=== PATIENT | female | born 1945 | race Caucasian/White ===

== ENCOUNTER → 2017-01-06 | Outpatient (CLI) | payer BC ==
[~2017-01-06] MED LIST: ASPI81TA28 PO; CRAN1CAP15 PO; KRIL1CAP18 PO; LEVO125T4 PO; LOSA100T2 PO; METO25TA56 PO; MULT-506 PO; OXYC-57 PO; PRLSR20 PO; SERT50TA PO
--- NOTE | 2017-01-06 10:51 | DIAGNOSTIC IMAGING REPORT ---
RIGHT KNEE 1 OR 2 VIEWS ROUTINE CLINICAL HISTORY: Right knee pain COMPARISON: None. DISCUSSION: The bones are mildly osteopenic. There are mild osteoarthritic changes. There are no acute fractures. There are no destructive lesions. There is a probable small suprapatellar joint effusion. IMPRESSION: 1. Mild degenerative change 2. No acute fractures 3. Osteopenia 4. Suspected small joint effusion Electronically signed by: Pascual Beal M.D. 01/06/2017 10:50 AM Dictated Date/Time: 01/06/2017 10:49 AM
--- NOTE | 2017-01-06 11:01 | DIAGNOSTIC IMAGING REPORT ---
RIGHT HIP UNILATERAL 2 VIEWS CLINICAL HISTORY: Right hip pain. COMPARISON: Right hip radiographs May 22, 2013. FINDINGS: Alignment of the right hip is anatomic. There is no fracture or suspicious lesion. There is no evidence for avascular necrosis of the right femoral head. Hip joint space is preserved. There is minimal osteophytosis and subchondral sclerosis within the acetabulum. IMPRESSION: 1. No acute fracture or dislocation of the right hip. 2. Mild right hip osteoarthritis. Electronically signed by: Enrike Cody M.D. 01/06/2017 11:00 AM Dictated Date/Time: 01/06/2017 10:59 AM
[2017-01-06 11:11] LABS: BASO % 0.4 %; BASO ABS # 0.03 K/uL (0-0.2); COMPLETE YES; EOS % 2.1 %; HEMATOCRIT 42.8 % (37-47); IG% 0.3 %; LYMPH % 31.7 %; LYMPH ABS # 2.41 K/uL (1.2-3.4); MEAN CELL VOLUME 89.4 fL (80-100); MEAN CORPUSCULAR HEMOGLOBIN 30.9 pg (25-34); MEAN CORPUSCULAR HGB CONC 34.6 g/dl (32-36); MEAN PLATELET VOLUME 10.2 fL (7.4-10.4); NEUT % 58.5 %; PLATELET COUNT 251 K/uL (130-400); RED BLOOD COUNT 4.79 M/uL (4.2-5.4); WHITE BLOOD COUNT 7.61 K/uL (4.8-10.8)
[2017-01-06 11:45] LABS: ALT/SGPT 19 U/L (12-78); AST/SGOT 11 U/L (15-37); BLOOD UREA NITROGEN 13 mg/dl (7-18); BUN/CREATININE RATIO 18.1 (10-20); CALCIUM 8.8 mg/dl (8.5-10.1); CARBON DIOXIDE 33 mmol/L (21-32); CHLORIDE 101 mmol/L (98-107); CHOLESTEROL 199 mg/dl (0-200); CREATININE 0.69 mg/dl (0.60-1.20); GLUCOSE 103 mg/dl (70-99); MAGNESIUM 2.2 mg/dl (1.8-2.4); POTASSIUM 3.4 mmol/L (3.5-5.1); SODIUM 140 mmol/L (136-145)
[2017-01-06 11:53] LABS: ALKALINE PHOSPHATASE 62 U/L (45-117); HDL CHOLESTEROL 66 mg/dl; LDL CHOLESTEROL CALCULATED 114 mg/dl; TRIGLYCERIDES 94 mg/dl (0-150); VERY LOW DENSITY LIPOPROT CALC 19 mg/dl
== END | disposition home or self-care (01) ==
LOC: C.RAD1850 10:19
PROVIDERS: ATTEND Nurse Practitioner Family
DX: M25.561 Pain in right knee (principal); M25.551 Pain in right hip; I10 Essential (primary) hypertension; E03.9 Hypothyroidism, unspecified; K21.9 Gastro-esophageal reflux disease without esophagitis; Z13.1 Encounter for screening for diabetes mellitus; Z13.220 Encounter for screening for lipoid disorders

== ENCOUNTER → 2017-01-11 | Outpatient (CLI) | payer BC ==
--- NOTE | 2017-01-11 13:30 | DIAGNOSTIC IMAGING REPORT ---
CT temporal bones TEMPORAL ORB/SELLA/TEMP W/O CLINICAL HISTORY: H71.01,H70.11 cholesteatoma TECHNIQUE: Transaxial acquisition with multi axial reformatted images COMPARISON STUDY: None FINDINGS: The left mastoid air cells are well aerated. The left middle ear canal appears to be generally patent with only a trace amount of mucosal thickening. The middle ear ossicles are intact. The left scutum is intact. Left tympanic membrane is slightly retracted. There is a focal mass cerumen medially lateral to the left tympanic membrane. The right mastoid air cells show near complete opacification. Abnormal soft tissue encircles and somewhat disrupts the right middle ear ossicles. There is partial erosive change of the tip of the scutum. Tympanic membrane is retracted. Abnormal soft tissue occupies a component of the attic estimated at 25-30% volume. The right external auditory canal is widely patent. IMPRESSION: 1. Near complete opacification right mastoid air cells. 2. Abnormal soft tissue encircling and disrupting the middle air ossicles of the right middle ear. 3. This soft tissue demonstrates mild focal erosive change of the tip of the scutum and moderate tympanic membrane retraction. 4. Soft tissue within the right attic is 25-30% of volume. There is no erosive change of the superior attic margin 5. Mild retraction left tympanic membrane with no significant scutum erosion or abnormal soft tissue within the middle ear. Electronically signed by: Sachin Flores M.D. 01/11/2017 1:29 PM Dictated Date/Time: 01/11/2017 1:20 PM
== END | disposition home or self-care (01) ==
LOC: C.CTS 12:39
PROVIDERS: ATTEND Otolaryngology
DX: H71.01 Cholesteatoma of attic, right ear (principal); H70.11 Chronic mastoiditis, right ear

== ENCOUNTER 2017-02-19 05:16 | Day surgery (SDC) | payer BC ==
[2017-02-09 10:41] VITALS: BMI 31.0
--- NOTE | 2017-02-09 11:11 | PAT Medication Instructions ---
Service Date Feb 09, 2017. Current Home Medication List Aspirin (Aspirin Ec), 81 MG PO QAM Cranberry-Vitamin C-Vitamin E (Cranberry), 1 CAP PO QAM Krill Oil (Megared [place]-3 Krill Oil 500 mg), 1 CAP PO DAILY Levothyroxine Sodium (Levothyroxine Sodium), 1 TAB PO QAM Losartan Potassium & Hydrochlo (Hyzaar), 1 TAB PO QAM Metoprolol Tartrate (Lopressor) (Lopressor), 25 MG PO QAM Multivitamin (Multivitamin), 1 TAB PO QAM Omeprazole (Prilosec), 40 MG PO HS Sertraline (Zoloft), 50 MG PO HS Medication Instructions For Your Scheduled Surgery - Check with surgeon for instructions: Aspirin (Aspirin Ec), 81 MG PO QAM - Hold the following medications starting 02/10/17: Cranberry-Vitamin C-Vitamin E (Cranberry), 1 CAP PO QAM Krill Oil (Megared Mercedita-3 Krill Oil 500 mg), 1 CAP PO DAILY - Hold the following medications the morning of surgery: Multivitamin (Multivitamin), 1 TAB PO QAM Losartan Potassium & Hydrochlo (Hyzaar), 1 TAB PO QAM - Take the following medications the morning of surgery with a sip of water: Metoprolol Tartrate (Lopressor) (Lopressor), 25 MG PO QAM Levothyroxine Sodium (Levothyroxine Sodium), 1 TAB PO QAM - Take the following medications as scheduled the night before surgery: Omeprazole (Prilosec), 40 MG PO HS Sertraline (Zoloft), 50 MG PO HS If you have any questions please call us at [phone] (Jennifer Rod PA-C) or [phone] or [phone]
--- NOTE | 2017-02-18 15:09 | History and Physical ---
History & Physical Date Feb 18, 2017. Chief Complaint right ear infection, drainage History of Present Illness The patient is a 71 year old female with complaints of cholesteatoma of right ear and mastoid Additional History Hepatic Disease: No Endocrine Disorder: No Kidney Disease: No Hypertension: Yes Heart Disease: No Bleeding Tendencies: No Infectious Diseases: No Allergies Coded Allergies: NO KNOWN DRUG ALLERGIES (Verified Allergy, Unknown, NKDA, 02/09/17) Home Medications Scheduled Aspirin (Aspirin Ec), 81 MG PO QAM Cranberry-Vitamin C-Vitamin E (Cranberry), 1 CAP PO QAM Krill Oil (Megared [place]-3 Krill Oil 500 mg), 1 CAP PO DAILY Levothyroxine Sodium (Levothyroxine Sodium), 1 TAB PO QAM Losartan Potassium & Hydrochlo (Hyzaar), 1 TAB PO QAM Metoprolol Tartrate (Lopressor) (Lopressor), 25 MG PO QAM Multivitamin (Multivitamin), 1 TAB PO QAM Omeprazole (Prilosec), 40 MG PO HS Sertraline (Zoloft), 50 MG PO HS Physical Examination Skin: warm/dry, no rash Eyes: normal inspection, EOMI, sclerae normal ENT: normal ENT inspection, pharynx normal, + pertinent finding (cholesteatoma and post. sup. perforation right ear) Head: normocephalic, atraumatic Neck: supple, no adenopathy, trachea midline Respiratory/Chest: lungs clear, normal breath sounds, no respiratory distress Cardiovascular: regular rate, rhythm, no edema, no murmur Abdomen / GI: normal bowel sounds, non tender Back: normal inspection Extremities: normal inspection, normal range of motion Neurologic/Psych: no motor/sensory deficits, alert, normal reflexes, oriented x 3 Diagnosis cholesteatoma Plan of Treatment tympanomastoidectomy, right
[~2017-02-19] VITALS: Ht 172.7 cm; Wt 94.4 kg
[~2017-02-19 05:16] MED LIST changes: -LEVO125T4 PO; +LEVO125T5 PO; -OXYC-57 PO
[2017-02-19 05:59] VITALS: BP 155/88; PULSE 66; TEMP 37; O2SAT 95; Ht 172.7 cm; Wt 94.4 kg
[2017-02-19] MEDS ORDERED: CEFAZOLIN 2000 MG/60 ML D5W IV SCH (06:00)
[2017-02-19] MEDS ORDERED: LACTATED RINGER'S 1000ML 1,000 ML IV SCH (06:00)
--- NOTE | 2017-02-19 07:05 | History & Physical Bridge Note ---
H&P Re-Evaluation Bridge Note: I have examined the patient, reviewed the History & Physical and in the interval since the performance of the History & Physical I have noted the following changes of clinical significance: No changes noted
[2017-02-19] MEDS ORDERED: MIDAZOLAM HCL 1 MG/ML 2ML VIAL ONE (07:08)
[2017-02-19] MEDS ORDERED: LIDOCAINE HCL 2% 2 ML VIAL (20MG/ML) ONE (07:08)
[2017-02-19] MEDS ORDERED: FENTANYL CITRATE INJ 50 MCG/1 ML 2 ML VIAL ONE (07:08)
[2017-02-19] MEDS ORDERED: PROPOFOL IV EMULSION 10 MG/ML 20 ML VIAL IV ONE (07:08)
[2017-02-19] MEDS ORDERED: GELATIN SPONGE 12-7MM ONE (07:11)
[2017-02-19] MEDS ORDERED: NEOMYC/POLYMYX/BACITR/HC OP OI 3.5 GM TUBE ONE (07:12)
[2017-02-19] MEDS ORDERED: NEOMYCIN/POLYMYX/HYDROCORT OT SUSP 10 ML BTL ONE (07:13)
[2017-02-19] MEDS ORDERED: ONDANSETRON INJ 2 MG/ML 2 ML VIAL ONE (07:45)
[2017-02-19] MEDS ORDERED: DEXAMETHASONE SOD INJ 4 MG/ML VIAL ONE (07:45)
[2017-02-19] MEDS ORDERED: SUCCINYLCHOLINE 100MG/5ML SYR IV ONE (07:45)
[2017-02-19] MEDS ORDERED: LIDOCAINE/EPINEPHRINE 2% 1:200,000 20 ML SDV INJ ONE (09:14)
[2017-02-19] MEDS ORDERED: SODIUM CHLORIDE 0.9% 1000ML 1,000 ML IV SCH (09:35)
[2017-02-19] MEDS ORDERED: OXYC-57 PO (09:36)
--- NOTE | 2017-02-19 09:37 | Discharge Instructions ---
Discharge Instructions Date of Service Feb 19, 2017. Admission Reason for Admission: Cholesteatoma Right Ear Discharge Discharge Diagnosis / Problem: same Discharge Goals Goal(s): Therapeutic intervention Activity Recommendations Activity Limitations: resume your previous activity . Instructions / Follow-Up Instructions / Follow-Up ACTIVITY RECOMMENDATIONS: No limitations OVER THE COUNTER MEDICATIONS: Continue any other previous medications unless otherwise indicated by your surgeon. * You may use Tylenol for mild pain as per bottle instructions. SPECIAL CARE INSTRUCTIONS: * Keep operative ear dry. * Change cotton balls 4 times per day. Leave packing in ear. * Sneeze with your mouth open. * Do not blow your nose. Sniff back instead. * Please call with any increasing pain, increasing drainage, active bleeding, redness and/or swelling, or any concerns. Dr. Magaña's office number is . FOLLOW UP VISIT: If not already scheduled, please call to schedule follow-up appointment with Dr. Magaña. Current Hospital Diet Patient's current hospital diet: Discharge Diet Recommended Diet: Regular Diet Procedures Procedures Performed: Right Tympanomastoidectomy Pending Studies Studies pending at discharge: no Laboratory Results Lipid Panel Test 01/06/17 10:24 Range/Units Triglycerides Level 94 0-150 mg/dl Cholesterol Level 199 0-200 mg/dl HDL Cholesterol 66 mg/dl Cholesterol/HDL Ratio 3.0 LDL Cholesterol, Calculated 114 mg/dl Medical Emergencies . Who to Call and When: Medical Emergencies: If at any time you feel your situation is an emergency, please call 911 immediately. . Non-Emergent Contact Non-Emergency issues call your: Primary Care Provider . "Provider Documentation" section prepared by Arlette Magaña. VTE Core Measure Inpt VTE Proph given/why not?: SCD's [place] Drug Monitoring Program Search Results: no issues identified
[2017-02-19] MEDS ORDERED: EpHEDrine SULFATE 50MG/5ML SYR ONE (09:42)
[2017-02-19] MEDS ORDERED: OXYCODONE/ACETAMINOPHEN 5-325 TAB PO PRN ×2 (09:45)
[2017-02-19] MEDS ORDERED: HYDROmorphone INJ 2 MG/ML SYR/VIAL IV PRN (10:00)
[2017-02-19] MEDS ORDERED: ONDANSETRON INJ 2 MG/ML 2 ML VIAL IV PRN (10:00)
[2017-02-19] MEDS ORDERED: PHENYLEPHRINE 100MCG/ML 5ML SYR IV PRN (10:00)
[2017-02-19] MEDS ORDERED: ATROPINE SULFATE 0.1 MG/ML 5ML SYR IV PRN (10:00)
[2017-02-19] MEDS ORDERED: EpHEDrine SULFATE INJ 50 MG/ML AMP IV PRN (10:00)
--- NOTE | 2017-02-19 10:15 | OPERATIVE REPORT ---
DATE OF OPERATION: 02/19/2017 PREOPERATIVE DIAGNOSIS: Cholesteatoma of the right ear. POSTOPERATIVE DIAGNOSIS: Same. PROCEDURE: Tympanomastoidectomy, right ear. SURGEON: Dr. Magaña. ANESTHESIA: General LMA. COMPLICATIONS: None. BLOOD LOSS: 30 mL HISTORY: A 71-year-old lady with persistent drainage from perforation of the right ear, noted to have cholesteatoma. CT scan documented opacified right mastoid. DESCRIPTION OF PROCEDURE: The patient brought to the operating room, placed in supine position. General anesthesia was induced, prepped, draped in usual sterile manner. The right ear was prepped with Betadine paint including the ear canal. The patient was draped in usual sterile manner. Under microscopy, the canal and postauricular area were injected with 2% Xylocaine with 1:1000 strength epinephrine. The canal incisions were made at 6 and 12 o'clock and then connected across the posterior canal wall using the [place] blade. The tympanomeatal flap was elevated using the round knife, entering the hypotympanum inferiorly, continuing the elevation superiorly, finding the chorda tympani nerve, preserving the nerve through the entire procedure, finding the malleus to be eroded with a very short handle, finding the incus to be also partially eroded of the lenticular process. At this point, there was no visible superstructure of the stapes. This was probably eroded from the cholesteatoma tumor which was dissected free from the epitympanic area using the round knife, the Estrella, the Monserrat, and the right angle elevators. Because of the extension superiorly, the postauricular incision was made, carried down through the skin and subcutaneous layer using the 15 blade. The periosteal incision was made in the shape of reverse 7 using the 15 blade and elevated using the [place] and [place] elevators, opening up the mastoid. Temporalis fascia was harvested and set aside for use later in the fascia press. Tympanomastoidectomy was performed using the 4.8 and then the 3.2 and then the 2.3 mm burrs on the Xomed drill. The sinodural angle was delineated. The mastoid was thick. The [place] septum was encountered and the mastoid was opened. Thick mucus was evacuated from the mastoid cavity. Elevation was continued anteriorly into the epitympanum, exposing the body of the incus and the head of the malleus, which appeared to be intact. Exploration was performed on both sides of the ear canal underneath the facial recess, finding no further cholesteatoma extension other than into the epitympanum. This cholesteatoma was dissected free with a right angle picks, the Monserrat, and the Estrella needle, and sent for specimen. Again, the incus handle and stapes appeared to have eroded and also the malleus appeared to be shortened. With the mastoid irrigated clean, the middle ear space was inspected. This was filled with pieces of dry Gelfoam as a platform. The temporalis fascia was placed in the underlay manner, draped onto the posterior and superior canal wall, and then the tympanomeatal flap was reflected back in its original position. The mastoid was closed with interrupted 4-0 Vicryl sutures on the periosteum and then interrupted 4-0 Vicryl suture subcutaneously and subcuticularly. Dermabond was used to close the skin. The canal was filled with pieces of Gelfoam dipped in Cortisporin and also with Cortisporin ointment. The Larue dressing was placed over the right mastoid. The patient tolerated the procedure well and was taken to recovery area in satisfactory condition. I attest to the content of the Intraoperative Record and any orders documented therein. Any exceptio ns are noted below.
[2017-02-19 10:30] VITALS: BP_SYST 139; BP_SYST 145; BP_DIAS 74; BP_DIAS 75; PULSE 78; TEMP 36.5; O2SAT 91; O2SAT 94
[2017-02-19 11:00] VITALS: BP_SYST 139; BP_SYST 145; BP_DIAS 74; BP_DIAS 75; TEMP 36.5; O2SAT 94
[2017-02-19] MEDS ORDERED: ACETAMINOPHEN 325 MG TAB ONE (11:11)
[2017-02-19 11:30] VITALS: BP 131/65; PULSE 78; TEMP 36.5; O2SAT 96
[2017-02-19 12:00] VITALS: BP 132/63; PULSE 78; TEMP 36.9; O2SAT 94
--- NOTE | 2017-02-19 12:19 | Anesthesiology Progress Note ---
Anesthesia Post Op Note Date & Time Feb 19, 2017 at 12:19 Vital Signs Pain Intensity: 0 Vital Signs Past 12 Hours Date Time Temp Pulse Resp B/P Pulse Ox O2 Delivery O2 Flow Rate FiO2 02/19/17 10:25 36.5 75 16 138/67 97 Room Air 02/19/17 10:23 79 14 96 02/19/17 10:23 77 14 02/19/17 10:20 147/73 02/19/17 10:18 77 19 02/19/17 10:18 75 19 93 02/19/17 10:15 141/75 02/19/17 10:13 79 14 96 02/19/17 10:13 80 14 02/19/17 10:10 148/78 02/19/17 10:08 87 17 92 02/19/17 10:08 87 17 02/19/17 10:07 87 19 02/19/17 10:07 86 19 94 02/19/17 10:05 145/74 02/19/17 10:02 86 17 02/19/17 10:02 87 17 92 02/19/17 10:00 151/86 02/19/17 09:57 83 17 95 02/19/17 09:57 83 17 02/19/17 09:55 133/87 02/19/17 09:52 86 17 100 02/19/17 09:52 85 17 02/19/17 09:50 141/96 02/19/17 09:47 36.9 89 18 154/82 100 Mask 10 02/19/17 09:47 87 13 02/19/17 09:47 86 13 154/82 100 02/19/17 05:59 37.0 66 22 155/88 95 Room Air Notes Mental Status: alert / awake / arousable, participated in evaluation Pt Amnestic to Procedure: Yes Nausea / Vomiting: adequately controlled Pain: adequately controlled Airway Patency, RR, SpO2: stable & adequate BP & HR: stable & adequate Hydration State: stable & adequate Anesthetic Complications: no major complications apparent
[2017-02-19 13:19] VITALS: BP 145/74; PULSE 78; TEMP 36.9; O2SAT 94
== END 2017-02-19 12:27 | disposition home or self-care (01) ==
LOC: C.ACU 05:16
PROVIDERS: ATTEND Otolaryngology
DX: H60.41 Cholesteatoma of right external ear (principal); H61.891 Other specified disorders of right external ear

== ENCOUNTER → 2017-04-20 | Outpatient (CLI) | payer BC ==
[~2017-04-20] MED LIST changes: +OXYC-57 PO
--- NOTE | 2017-04-20 13:23 | DIAGNOSTIC IMAGING REPORT ---
RIGHT KNEE 1 OR 2 VIEWS ROUTINE CLINICAL HISTORY: Bilateral knee pain. COMPARISON: Right knee radiographs January 06, 2017. FINDINGS: Alignment of the right knee is anatomic. No fracture or suspicious lesions are noted. There is a small right knee joint effusion. There is mild osteophytosis with thin the 3 compartments of the right knee with minimal medial compartment joint space narrowing. Suspected varicosities are noted. IMPRESSION: 1. No acute fracture. 2. Small right knee joint effusion. 3. Mild osteoarthritis of the right knee. Electronically signed by: Enrike Cody M.D. 04/20/2017 1:22 PM Dictated Date/Time: 04/20/2017 1:21 PM
--- NOTE | 2017-04-20 13:24 | DIAGNOSTIC IMAGING REPORT ---
LEFT KNEE 1 OR 2 VIEWS ROUTINE CLINICAL HISTORY: Bilateral knee pain. COMPARISON: None FINDINGS: Alignment of the left knee is anatomic. There is no fracture or joint effusion. No osseous lesion is present. There are suspected varicosities. Joint spaces are preserved. There is minimal osteophytosis within the medial compartment. IMPRESSION: 1. No acute fracture or joint effusion of the left knee. 2. Minimal osteoarthritis of the medial compartment of the left knee. Electronically signed by: Enrike Cody M.D. 04/20/2017 1:22 PM Dictated Date/Time: 04/20/2017 1:22 PM
== END | disposition home or self-care (01) ==
LOC: C.RAD1850 12:51
PROVIDERS: ATTEND Nurse Practitioner Family
DX: M17.0 Bilateral primary osteoarthritis of knee (principal); M25.561 Pain in right knee; M25.562 Pain in left knee

== ENCOUNTER → 2017-12-02 | Outpatient (CLI) | payer BC ==
[~2017-12-02] MED LIST changes: -OXYC-57 PO
[2017-12-02 18:39] LABS: BLOOD UREA NITROGEN 11 mg/dl (7-18); CALCIUM 8.8 mg/dl (8.5-10.1); CARBON DIOXIDE 28 mmol/L (21-32); CREATININE 0.89 mg/dl (0.60-1.20); GLUCOSE 109 mg/dl (70-99); POTASSIUM 3.9 mmol/L (3.5-5.1); SODIUM 135 mmol/L (136-145)
[2017-12-02 18:51] LABS: CHOLESTEROL 183 mg/dl (0-200); LDL CHOLESTEROL CALCULATED 108 mg/dl
== END | disposition home or self-care (01) ==
LOC: C.LABPBG 12:18
PROVIDERS: ATTEND Family Medicine
DX: R39.9 Unspecified symptoms and signs involving the genitourinary system (principal); I10 Essential (primary) hypertension; E03.9 Hypothyroidism, unspecified; Z13.220 Encounter for screening for lipoid disorders

== ENCOUNTER 2018-02-15 06:47 | Inpatient (IN) | payer BC, OTHER ==
[2018-02-15] VITALS (7 sets, daily range): BP systolic 110–145; BP diastolic 73–80; PULSE 88–107; TEMP 36.3–37.2; O2SAT 90–95; Ht 172.7 cm; Wt 92.3 kg
[~2018-02-15] VITALS: Ht 172.7 cm; Wt 92.3 kg
[2018-02-15] MEDS ORDERED: DILTIAZEM HCL 5 MG/ML 5 ML VIAL IV STA ×2 (07:14→08:53)
[2018-02-15 07:22] LABS: BASO % 0.6 %; BASO ABS # 0.04 K/uL (0-0.2); EOS % 1.8 %; EOS ABS # 0.13 K/uL (0-0.5); HEMATOCRIT 40.5 % (37-47); HEMOGLOBIN 13.3 g/dL (12.0-16.0); IG# 0.02 K/uL (0.00-0.02); LYMPH % 19.8 %; LYMPH ABS # 1.43 K/uL (1.2-3.4); MEAN CELL VOLUME 93.1 fL (80-100); MEAN CORPUSCULAR HEMOGLOBIN 30.6 pg (25-34); MEAN CORPUSCULAR HGB CONC 32.8 g/dl (32-36); MEAN PLATELET VOLUME 10.2 fL (7.4-10.4); MONO % 5.5 %; PLATELET COUNT 216 K/uL (130-400); RED CELL DISTRIBUTION WIDTH CV 14.4 % (11.5-14.5); RED CELL DISTRIBUTION WIDTH SD 49.2 fL (36.4-46.3); WHITE BLOOD COUNT 7.22 K/uL (4.8-10.8)
[2018-02-15 07:38] LABS: ALBUMIN 3.5 gm/dl (3.4-5.0); ALT/SGPT 73 U/L (12-78); AST/SGOT 43 U/L (15-37); BLOOD UREA NITROGEN 10 mg/dl (7-18); CALCIUM 8.5 mg/dl (8.5-10.1); CARBON DIOXIDE 27 mmol/L (21-32); CREATININE 1.01 mg/dl (0.60-1.20); GLUCOSE 142 mg/dl (70-99); LIPASE 119 U/L (73-393); POTASSIUM 3.4 mmol/L (3.5-5.1); SODIUM 142 mmol/L (136-145)
[2018-02-15] MEDS ORDERED: POTASSIUM CHLORIDE 20 MEQ/15 ML UDC PO STA (07:40)
[2018-02-15 07:41] LABS: INFLUENZA B ANTIGEN Neg for Influ B (NEG)
[2018-02-15 07:43] LABS: ALKALINE PHOSPHATASE 66 U/L (45-117); CKMB 2.6 ng/ml (0.5-3.6); TOTAL PROTEIN 7.1 gm/dl (6.4-8.2)
[2018-02-15 07:46] LABS: PTT PATIENT 24.7 SECONDS (21.0-31.0)
--- NOTE | 2018-02-15 07:47 | EMERGENCY ROOM VISIT NOTE ---
History Report prepared by Chris: Amarilys Coombs Under the Supervision of: Dr. Steven Chang M.D. First contact with patient: 07:02 Chief Complaint: RESPIRATORY PROBLEMS Stated Complaint: HAVING TROUBLE BREATHING Nursing Triage Summary: pt to the ED with c/o trouble breathing and can't breath when laying down for couple days but got worse last night c/o epigastric pain intermittantly coughing up mucous History of Present Illness The patient is a 72 year old female who presents to the Emergency Room with complaints of constant respiratory problems for the past 2-3 days. She has been feeling short of breath and feeling like she can't breathe. This is worse when she lays flat and is slightly alleviated by sitting or standing. She states that her test feels very tight. Her symptoms became worse last night and she was unable to sleep so she came to the ED for further evaluation. The patient denies any personal history of a-fib or an irregular heart rhythm. 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 She notes that she forgot to take her blood pressure medication yesterday and did not take it this morning because she was not feeling well. Source of History: patient Onset: 2-3 days ago Position: chest Quality: other (shortness of breath) Timing: worsening Modifying Factors (Worsening): other (laying down) Modifying Factors (Relieving): other (sitting/standing) Note: Pt reports chest tightness. Review of Systems See HPI for pertinent positives & negatives. A total of 10 systems reviewed and were otherwise negative. Past Medical & Surgical Medical Problems: (1) Gastro-Esophageal Reflux Disease Without Esophagitis (2) Hypothyroidism, Unspecified (3) Hypothyroidism, Unspecified (4) Hypothyroidism, Unspecified (5) Hypothyroidism, Unspecified (6) Sciatica Family History Diabetes mellitus Heart disease Hypertension Social History Smoking Status: Former Smoker Smokeless Tobacco Use: No Alcohol Use: none Drug Use: none Housing Status: lives with family Occupation Status: employed Current/Historical Medications Scheduled Aspirin (Aspirin Ec), 81 MG PO QAM Hctz/Losartan (Hyzaar 25MG/100MG), 1 TAB PO DAILY Levothyroxine Sodium (Levothyroxine Sodium), 125 MCG PO QAM Metoprolol Tartrate (Lopressor) (Lopressor), 25 MG PO QAM Multivitamin (Multivitamin), 1 TAB PO QAM Sertraline (Zoloft), 50 MG PO HS Allergies Coded Allergies: NO KNOWN DRUG ALLERGIES (Verified Allergy, Unknown, NKDA, 02/15/18) Physical Exam Vital Signs Date Time Temp Pulse Resp B/P (MAP) Pulse Ox O2 Delivery O2 Flow Rate FiO2 02/15/18 09:11 88 Nasal Cannula 2.0 02/15/18 09:10 90 Nasal Cannula 2.0 02/15/18 09:03 93 16 130/89 90 Room Air 02/15/18 08:38 94 16 128/92 91 Room Air 02/15/18 07:56 93 Room Air 02/15/18 07:56 100 16 130/89 93 Room Air 02/15/18 07:15 117 20 151/101 96 Room Air 02/15/18 07:06 152 02/15/18 07:05 99 Room Air 02/15/18 06:50 36.7 89 18 159/86 97 Room Air Physical Exam GENERAL: Awake, alert, well-appearing, in no acute distress HENT: Normocephalic, atraumatic. Oropharynx unremarkable. EYES: Normal conjunctiva. Sclera non-icteric. NECK: Supple. No nuchal rigidity. FROM. No JVD. RESPIRATORY: Clear to auscultation. CARDIAC: Regular rate, normal rhythm. Extremities warm and well perfused. Pulses equal. ABDOMEN: Soft, non-distended. No tenderness to palpation. No rebound or guarding. No masses. RECTAL: Deferred. MUSCULOSKELETAL: Chest examination reveals no tenderness. The back is symmetrical on inspection without obvious abnormality. There is no CVA tenderness to palpation. No joint edema. LOWER EXTREMITIES: Calves are equal size bilaterally and non-tender. No edema. No discoloration. NEURO: Normal sensorium. No sensory or motor deficits noted. SKIN: No rash or jaundice noted. Medical Decision & Procedures ER Provider Diagnostic Interpretation: Radiology results as stated below per my review and radiologist interpretation: CHEST ONE VIEW PORTABLE CLINICAL HISTORY: Atypical chest pain COMPARISON STUDY: No previous studies for comparison. FINDINGS: The heart is enlarged. There is mild interstitial edema asymmetric on the right. There is no focal pulmonary consolidation. There are no large pleural effusions.[ IMPRESSION: Cardiomegaly and radiographic evidence of mild interstitial pulmonary edema. Clinical and radiographic follow-up is recommended. Electronically signed by: Pascual Beal M.D. 02/15/2018 8:09 AM Dictated Date/Time: 02/15/2018 8:07 AM (CHEST FOR PE) ANGIO WITH CLINICAL HISTORY: 72 years-old Female presenting with shortness of breath while lying down, worsening over the past few days, coughing with mucus production, epigastric pain. TECHNIQUE: Multidetector CT angiography of the chest was performed after administration of intravenous contrast. 3-D volumetric and/or maximum intensity projection (MIP) images were subsequently reconstructed for review. IV contrast: 93 mL of Optiray 320. A dose lowering technique was used consistent with the principles of ALARA (as low as reasonably achievable). COMPARISON: Chest x-ray performed earlier the same day. CT DOSE (mGy.cm): The estimated cumulative dose is 588.05 mGy.cm. FINDINGS: Client Service And Consulting Manager topogram: Cardiomegaly. Pulmonary vasculature: The study is suboptimal for the assessment of the pulmonary vascular tree secondary to respiratory motion artifact. Allowing for limited image quality, no central filling defect to suggest pulmonary embolus. Main pulmonary artery is not enlarged. No flattening of the interventricular septum. No intracardiac filling defect. No reflux of contrast into the hepatic veins. Remaining chest: On soft tissue windows, normal thyroid and thoracic inlet. No axillary, supraclavicular, hilar, or mediastinal lymphadenopathy. Atherosclerosis of the aorta. Multichamber enlargement of the heart. Coronary artery calcification. Trace pericardial effusion. Small bilateral pleural effusions, right greater than left. Upper abdomen normal. On lung windows, prominent smooth interlobular septal thickening with diffuse groundglass opacity in the lungs. Extensive bronchial wall thickening. No focal nodule. Central airways patent. On bone windows, degenerative changes of the spine. IMPRESSION: 1. Findings consistent with moderate pulmonary edema in the setting of cardiomegaly with small bilateral pleural effusions, right greater than left. 2. No evidence of pulmonary emboli. Electronically signed by: Ben Martin M.D. 02/15/2018 8:36 AM Dictated Date/Time: 02/15/2018 8:31 AM Laboratory Results 02/15/18 07:08 Red Blood Count 4.35, Mean Corpuscular Volume 93.1, Mean Corpuscular Hemoglobin 30.6, Mean Corpuscular Hemoglobin Concent 32.8, Mean Platelet Volume 10.2, Neutrophils (%) (Auto) 72.0, Lymphocytes (%) (Auto) 19.8, Monocytes (%) (Auto) 5.5, Eosinophils (%) (Auto) 1.8, Basophils (%) (Auto) 0.6, Neutrophils # (Auto) 5.20, Lymphocytes # (Auto) 1.43, Monocytes # (Auto) 0.40, Eosinophils # (Auto) 0.13, Basophils # (Auto) 0.04 Test 02/15/18 07:05 02/15/18 07:08 Influenza Type A Antigen Neg for Influ A (NEG) Influenza Type B Antigen Neg for Influ B (NEG) White Blood Count 7.22 K/uL (4.8-10.8) Red Blood Count 4.35 M/uL (4.2-5.4) Hemoglobin 13.3 g/dL (12.0-16.0) Hematocrit 40.5 % (37-47) Mean Corpuscular Volume 93.1 fL (80-100) Mean Corpuscular Hemoglobin 30.6 pg (25-34) Mean Corpuscular Hemoglobin Concent 32.8 g/dl (32-36) Platelet Count 216 K/uL (130-400) Mean Platelet Volume 10.2 fL (7.4-10.4) Neutrophils (%) (Auto) 72.0 % Lymphocytes (%) (Auto) 19.8 % Monocytes (%) (Auto) 5.5 % Eosinophils (%) (Auto) 1.8 % Basophils (%) (Auto) 0.6 % Neutrophils # (Auto) 5.20 K/uL (1.4-6.5) Lymphocytes # (Auto) 1.43 K/uL (1.2-3.4) Monocytes # (Auto) 0.40 K/uL (0.11-0.59) Eosinophils # (Auto) 0.13 K/uL (0-0.5) Basophils # (Auto) 0.04 K/uL (0-0.2) RDW Standard Deviation 49.2 fL (36.4-46.3) RDW Coefficient of Variation 14.4 % (11.5-14.5) Immature Granulocyte % (Auto) 0.3 % Immature Granulocyte # (Auto) 0.02 K/uL (0.00-0.02) Prothrombin Time 11.0 SECONDS (9.0-12.0) Prothromb Time International Ratio 1.0 (0.9-1.1) Activated Partial Thromboplast Time 24.7 SECONDS (21.0-31.0) Partial Thromboplastin Ratio 1.0 D-Dimer 2390 ug/L FEU (0-500) Total Bilirubin 0.5 mg/dl (0.2-1) Direct Bilirubin 0.2 mg/dl (0-0.2) Aspartate Amino Transf (AST/SGOT) 43 U/L (15-37) Alanine Aminotransferase (ALT/SGPT) 73 U/L (12-78) Alkaline Phosphatase 66 U/L (45-117) Total Creatine Kinase 103 U/L (26-192) Creatine Kinase MB 2.6 ng/ml (0.5-3.6) Creatine Kinase MB Ratio 2.5 (0-3.0) Pro-B-Type Natriuretic Peptide 3036 pg/ml (0-900) Total Protein 7.1 gm/dl (6.4-8.2) Albumin 3.5 gm/dl (3.4-5.0) Lipase 119 U/L (73-393) Labs reviewed by ED physician. Medications Administered Medications (Trade) Dose Ordered Sig/Yazan Route Start Time Stop Time Status Last Admin Dose Admin Diltiazem HCl (Cardizem Inj) 25 mg NOW STAT IV 02/15/18 07:14 02/15/18 07:17 DC 02/15/18 07:25 25 MG Potassium Chloride (Piedad Ciel Elix) 40 meq NOW STAT PO 02/15/18 07:40 02/15/18 07:41 DC 02/15/18 07:54 40 MEQ Ondansetron HCl (Zofran Inj) 4 mg STK-MED ONCE .ROUTE 02/15/18 08:01 02/15/18 08:02 DC 02/15/18 08:03 4 MG Furosemide (Lasix Inj) 40 mg NOW STAT IV 02/15/18 08:44 02/15/18 08:45 DC 02/15/18 09:02 40 MG Diltiazem HCl (Cardizem Inj) 35 mg NOW STAT IV 02/15/18 08:53 02/15/18 08:54 DC 02/15/18 09:02 35 MG ECG Per My Interpretation Indication: SOB/dyspnea Rate (beats per minute): 156 Rhythm: atrial fibrillation 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 ED Course 0702: Past medical records reviewed. The patient was evaluated in room B2. A complete history and physical examination was performed. 0714: Cardizem 25 mg IV 0731: I reassessed the patient at this time and she is feeling better. Her heart rate is down into the 90s. 0740: Potassium Chloride 40 meq PO 0755: Upon reevaluation the patient was feeling nauseated. 0801: Zofran 4 mg IV 0844: Lasix 40 mg IV 0848: I spoke with Dr. Salas of cardiology. We discussed the patient's case and he recommends admission to medicine. 0851: I spoke with Dr. Morrison. We discussed the patient's case. The patient will be evaluated by the [facility] for further management. 0853: Cardizem 35 mg IV 0854: I reassessed the patient at this time. She is resting more comfortably. I discussed the results and treatment plan with the patient. I answered all pertaining questions that she had. She expressed understanding and verbalized agreement. Medical Decision Differential diagnosis: Etiologies such as infections, reactive airway disease, pneumonia, pneumothorax , COPD, CHF, cardiac ischemia, pulmonary embolism, musculoskeletal, gastrointestinal, as well as others were entertained. This is a 72-year-old female who presents the emergency department complaining of generalized weakness and shortness of breath that has been ongoing for the past 3 days. Upon arrival to the emergency department the patient is in A. fib with RVR. For this reason she was given Cardizem 25 mg. This resulted in improvement in the patient's heart rate. The patient appears to have heart failure on chest x-ray however she has an elevation in her d-dimer and therefore was sent for CAT scan of the chest. Her heart rate crept back up into the 100s and therefore she was given an additional dose of Cardizem here in the emergency department. She was also started on Lasix. Her CAT scan does not show any evidence of PE. I did discuss the case with the hospitalist service as the patient is not on any anticoagulation as well as cardiology who asked that the patient be admitted. Patient and family were in agreement with the treatment plan. Medication Reconcilliation Current Medication List: was personally reviewed by me Blood Pressure Screening Patient's blood pressure: Elevated blood pressure Blood pressure disposition: Elevated BP felt to be situational Consults Time Called: 0845 Consulting Physician: Dr. Salas Returned Call: [address] Salas of cardiology. We discussed the patient's case and he recommends admission to medicine. Additional Consults: Time Called: 0848 Consulted Physician: Dr. Morrison Returned Call: 0851 Additional Comments: I spoke with Dr. Morrison. We discussed the patient's case. The patient will be evaluated by the [facility] for further management. Impression Primary Impression: New onset atrial fibrillation Additional Impression: New onset of congestive heart failure Critical Care I have personally spent greater than 35 minutes of critical care time in the direct management of this patient. This includes bedside care, interpretation of diagnostic studies, and testing, discussion with consultants, patient, and family members, and other required patient management activities. This 35 minutes is in excess of all separately billable procedures. Scribe Attestation The scribe's documentation has been prepared under my direction and personally reviewed by me in its entirety. I confirm that the note above accurately reflects all work, treatment, procedures, and medical decision making performed by me. Departure Information Dispostion Being Evaluated By Hospitalist Referrals Minda Soares DO (PCP) Patient Instructions My [facility] Health Problem Qualifiers
[2018-02-15] MEDS ORDERED: OPTIRAY 320 IV PRN (08:00)
[2018-02-15] MEDS ORDERED: ONDANSETRON INJ 2 MG/ML 2 ML VIAL ONE (08:01)
[2018-02-15] MEDS ORDERED: ONDANSETRON INJ 2 MG/ML 2 ML VIAL IV STA (08:04)
--- NOTE | 2018-02-15 08:10 | DIAGNOSTIC IMAGING REPORT ---
CHEST ONE VIEW PORTABLE CLINICAL HISTORY: Atypical chest pain COMPARISON STUDY: No previous studies for comparison. FINDINGS: The heart is enlarged. There is mild interstitial edema asymmetric on the right. There is no focal pulmonary consolidation. There are no large pleural effusions.[ IMPRESSION: Cardiomegaly and radiographic evidence of mild interstitial pulmonary edema. Clinical and radiographic follow-up is recommended. Electronically signed by: Pascual Beal M.D. 02/15/2018 8:09 AM Dictated Date/Time: 02/15/2018 8:07 AM
[2018-02-15] MEDS ORDERED: HYZ/10015 PO (08:18)
--- NOTE | 2018-02-15 08:37 | DIAGNOSTIC IMAGING REPORT ---
(CHEST FOR PE) ANGIO WITH CLINICAL HISTORY: 72 years-old Female presenting with shortness of breath while lying down, worsening over the past few days, coughing with mucus production, epigastric pain. TECHNIQUE: Multidetector CT angiography of the chest was performed after administration of intravenous contrast. 3-D volumetric and/or maximum intensity projection (MIP) images were subsequently reconstructed for review. IV contrast: 93 mL of Optiray 320. A dose lowering technique was used consistent with the principles of ALARA (as low as reasonably achievable). COMPARISON: Chest x-ray performed earlier the same day. CT DOSE (mGy.cm): The estimated cumulative dose is 588.05 mGy.cm. FINDINGS: Thread Winder Automatic topogram: Cardiomegaly. Pulmonary vasculature: The study is suboptimal for the assessment of the pulmonary vascular tree secondary to respiratory motion artifact. Allowing for limited image quality, no central filling defect to suggest pulmonary embolus. Main pulmonary artery is not enlarged. No flattening of the interventricular septum. No intracardiac filling defect. No reflux of contrast into the hepatic veins. Remaining chest: On soft tissue windows, normal thyroid and thoracic inlet. No axillary, supraclavicular, hilar, or mediastinal lymphadenopathy. Atherosclerosis of the aorta. Multichamber enlargement of the heart. Coronary artery calcification. Trace pericardial effusion. Small bilateral pleural effusions, right greater than left. Upper abdomen normal. On lung windows, prominent smooth interlobular septal thickening with diffuse groundglass opacity in the lungs. Extensive bronchial wall thickening. No focal nodule. Central airways patent. On bone windows, degenerative changes of the spine. IMPRESSION: 1. Findings consistent with moderate pulmonary edema in the setting of cardiomegaly with small bilateral pleural effusions, right greater than left. 2. No evidence of pulmonary emboli. Electronically signed by: Ben Martin M.D. 02/15/2018 8:36 AM Dictated Date/Time: 02/15/2018 8:31 AM
[2018-02-15] MEDS ORDERED: FUROSEMIDE 40 MG/4 ML VIAL IV STA (08:44)
--- NOTE | 2018-02-15 09:41 | History and Physical ---
History & Physical Date & Time of Service: Feb 15, 2018 at 09:08 Chief Complaint: Having Trouble Breathing Primary Care Physician: Minda Soares DO History of Present Illness Source: patient 72 year old female with history of hypertension and hypothyroidism presented to the ED with complaints of shortness of breath worsening over the last three days. Shortness of breath was with activity and when lying flat. She would have occasional chest tightness as well. She denied weight gain or ankle swelling. She would be lightheaded and dizzy at times but denied any vision changes. She has an occasional cough but not fever or chills. She was evaluated in the ED with routine labs. She was borderline hypoxic and placed on supplemental O2. CXR showed some pulmonary edema. She was placed on telemetry and had an EKG which showed Afib with RVR with ventricular rate as high as the 130s. She was given diltiazem IV x 2 and currently she remains in Afib, but heart rate is controlled in the 90s. Her D-dimer was elevated and she underwent a CTA of the chest. there was no evidence of PE but pulmonary edema. She was given 40mg of IV lasix. Hospital medicine was asked to see the patient and she will be placed under the hospitalist service. Past Medical/Surgical History Past medical history 1. CHF - uncertain systolic vs diastolic 2. hypertension 3. Paroxysmal Atrial Fibrillation 4. Hypothyroidism Past surgical history 1. Hysterectomy 2. 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 Family History Diabetes mellitus Heart disease Hypertension Social History Smoking Status: Former Smoker Smokeless Tobacco Use: No Alcohol Use: none Drug Use: none Occupational Status: employed Allergies Coded Allergies: NO KNOWN DRUG ALLERGIES (Verified Allergy, Unknown, NKDA, 02/15/18) Home Medications Scheduled Aspirin (Aspirin Ec), 81 MG PO QAM Hctz/Losartan (Hyzaar 25MG/100MG), 1 TAB PO DAILY Levothyroxine Sodium (Levothyroxine Sodium), 125 MCG PO QAM Metoprolol Tartrate (Lopressor) (Lopressor), 25 MG PO QAM Multivitamin (Multivitamin), 1 TAB PO QAM Sertraline (Zoloft), 50 MG PO HS Review of Systems Constitutional: No fever, No chills, No sweats, No weight loss, No weakness, No fatigue, No problem reported Eyes: No worsening of vision, No eye pain, No redness, No discharge, No diplopia, No problem reported ENT: No hearing loss, No unusual epistaxis, No nasal symptoms, No sore throat, No tinnitus, No dental problems, No trouble swallowing, No problem reported Respiratory: + cough, + shortness of breath, + dyspnea on exertion, + dyspnea at rest, No sputum, No wheezing, No hemoptysis, No problem reported Cardiovascular: + chest pain, + orthopnea, + palpitations, No PND, No edema, No claudication, No problem reported Abdomen: No pain, No nausea, No vomiting, No diarrhea, No constipation, No GI bleeding, No problem reported Musculoskeletal: No joint pain, No muscle pain, No swelling, No calf pain, No problem reported Genitourinary - Female: No dysuria, No urinary frequency, No urinary urgency, No urinary incontinence, No urinary retention, No hematuria, No dysmenorrhea, No menorrhagia, No metrorrhagia, No rash, No vaginal bleeding, No vaginal discharge, No vaginal itching, No vulvodynia, No , No problem reported Neurologic: No memory loss, No paralysis, No weakness, No numbness/tingling, No vertigo, No balance problems, No problem reported Psychiatric: No depression symptoms, No anhedonism, No anxiety, No insomnia, No substance abuse, No problem reported Endocrine: No fatigue, No excessive thirst, No excessive urination, No problem reported Hematologic / Lymphatic: No abnormal bleeding/bruising, No clotting problems, No swollen lymph nodes, No night sweats, No problem reported Integumentary: No rash, No itch, No new/changing skin lesions, No color change , No bleeding, No problem reported Allergic / Immunologic: No environmental allergies, No seasonal allergies, No pet sensitivities, No food allergies, No hives, No frequent infections, No poor healing, No prolonged convalescence, No problem reported Physical Exam Vital Signs Date Time Temp Pulse Resp B/P (MAP) Pulse Ox O2 Delivery O2 Flow Rate FiO2 02/15/18 09:03 93 16 130/89 90 Room Air 02/15/18 08:38 94 16 128/92 91 Room Air 02/15/18 07:56 93 Room Air 02/15/18 07:56 100 16 130/89 93 Room Air 02/15/18 07:15 117 20 151/101 96 Room Air 02/15/18 07:06 152 02/15/18 07:05 99 Room Air 02/15/18 06:50 36.7 89 18 159/86 97 Room Air General Appearance: WD/WN, no apparent distress Head: normocephalic Eyes: normal inspection, EOMI, sclerae normal ENT: pharynx normal Neck: supple, no JVD, no carotid bruits Respiratory/Chest: chest non-tender, no respiratory distress, + crackles ( bibasilar) Cardiovascular: no edema, no JVD, no murmur, normal peripheral pulses, + irregularly irregular Abdomen/GI: normal bowel sounds, non tender, soft, no organomegaly, no pulsatile mass Back: normal inspection, no CVA tenderness Extremities/Musculoskelatal: normal inspection, no calf tenderness, no pedal edema Neurologic/Psych: no motor/sensory deficits, alert, normal mood/affect, oriented x 3 Skin: normal color, warm/dry, no rash Lymphatic: no adenopathy Diagnostics Laboratory Results Results Past 24 Hours Test 02/15/18 07:05 02/15/18 07:08 Range/Units Influenza Type A Antigen Neg for Influ A NEG Influenza Type B Antigen Neg for Influ B NEG White Blood Count 7.22 4.8-10.8 K/uL Red Blood Count 4.35 4.2-5.4 M/uL Hemoglobin 13.3 12.0-16.0 g/dL Hematocrit 40.5 37-47 % Mean Corpuscular Volume 93.1 80-100 fL Mean Corpuscular Hemoglobin 30.6 25-34 pg Mean Corpuscular Hemoglobin Concent 32.8 32-36 g/dl Platelet Count 216 130-400 K/uL Mean Platelet Volume 10.2 7.4-10.4 fL Neutrophils (%) (Auto) 72.0 % Lymphocytes (%) (Auto) 19.8 % Monocytes (%) (Auto) 5.5 % Eosinophils (%) (Auto) 1.8 % Basophils (%) (Auto) 0.6 % Neutrophils # (Auto) 5.20 1.4-6.5 K/uL Lymphocytes # (Auto) 1.43 1.2-3.4 K/uL Monocytes # (Auto) 0.40 0.11-0.59 K/uL Eosinophils # (Auto) 0.13 0-0.5 K/uL Basophils # (Auto) 0.04 0-0.2 K/uL RDW Standard Deviation 49.2 36.4-46.3 fL RDW Coefficient of Variation 14.4 11.5-14.5 % Immature Granulocyte % (Auto) 0.3 % Immature Granulocyte # (Auto) 0.02 0.00-0.02 K/uL Prothrombin Time 11.0 9.0-12.0 SECONDS Prothromb Time International Ratio 1.0 0.9-1.1 Activated Partial Thromboplast Time 24.7 21.0-31.0 SECONDS Partial Thromboplastin Ratio 1.0 D-Dimer 2390 0-500 ug/L FEU Sodium Level 142 136-145 mmol/L Potassium Level 3.4 3.5-5.1 mmol/L Chloride Level 107 98-107 mmol/L Carbon Dioxide Level 27 21-32 mmol/L Anion Gap 8.0 3-11 mmol/L Blood Urea Nitrogen 10 7-18 mg/dl Creatinine 1.01 0.60-1.20 mg/dl Est Creatinine Clear Calc Drug Dose 60.7 ml/min Estimated GFR () 64.0 Estimated GFR (Non- 55.2 BUN/Creatinine Ratio 10.1 10-20 Random Glucose 142 70-99 mg/dl Calcium Level 8.5 8.5-10.1 mg/dl Total Bilirubin 0.5 0.2-1 mg/dl Direct Bilirubin 0.2 0-0.2 mg/dl Aspartate Amino Transf (AST/SGOT) 43 15-37 U/L Alanine Aminotransferase (ALT/SGPT) 73 12-78 U/L Alkaline Phosphatase 66 45-117 U/L Total Creatine Kinase 103 26-192 U/L Creatine Kinase MB 2.6 0.5-3.6 ng/ml Creatine Kinase MB Ratio 2.5 0-3.0 Troponin I < 0.015 0-0.045 ng/ml Pro-B-Type Natriuretic Peptide 3036 0-900 pg/ml Total Protein 7.1 6.4-8.2 gm/dl Albumin 3.5 3.4-5.0 gm/dl Lipase 119 73-393 U/L Diagnostic Radiology (CHEST FOR PE) ANGIO WITH CLINICAL HISTORY: 72 years-old Female presenting with shortness of breath while lying down, worsening over the past few days, coughing with mucus production, epigastric pain. TECHNIQUE: Multidetector CT angiography of the chest was performed after administration of intravenous contrast. 3-D volumetric and/or maximum intensity projection (MIP) images were subsequently reconstructed for review. IV contrast: 93 mL of Optiray 320. A dose lowering technique was used consistent with the principles of ALARA (as low as reasonably achievable). COMPARISON: Chest x-ray performed earlier the same day. CT DOSE (mGy.cm): The estimated cumulative dose is 588.05 mGy.cm. FINDINGS: Materials Handling Coordinator topogram: Cardiomegaly. Pulmonary vasculature: The study is suboptimal for the assessment of the pulmonary vascular tree secondary to respiratory motion artifact. Allowing for limited image quality, no central filling defect to suggest pulmonary embolus. Main pulmonary artery is not enlarged. No flattening of the interventricular septum. No intracardiac filling defect. No reflux of contrast into the hepatic veins. Remaining chest: On soft tissue windows, normal thyroid and thoracic inlet. No axillary, supraclavicular, hilar, or mediastinal lymphadenopathy. Atherosclerosis of the aorta. Multichamber enlargement of the heart. Coronary artery calcification. Trace pericardial effusion. Small bilateral pleural effusions, right greater than left. Upper abdomen normal. On lung windows, prominent smooth interlobular septal thickening with diffuse groundglass opacity in the lungs. Extensive bronchial wall thickening. No focal nodule. Central airways patent. On bone windows, degenerative changes of the spine. IMPRESSION: 1. Findings consistent with moderate pulmonary edema in the setting of cardiomegaly with small bilateral pleural effusions, right greater than left. 2. No evidence of pulmonary emboli. EKG afib with no acute ST elevations or depressions Impression Assessment and Plan 1. Paroxysmal atrial fibrillation with RVR - -cardizem started in the ED. Will continue. -[id number] is 4. She will need anticoagulation. -consult cards - already on BB low dose, can increase - start heparin gtt 2. CHF - uncertain systolic vs diastolic -obtain ECHO -IV lasix for today and re-evaluate in the AM -strict I/O, daily weight 3. HTN - continue DEANNA and BB, monitor with cardizem and lasix 4. Full Code 5. 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 Discussed with Prince Gayle and agree with findings and plan as documented in the note. Any exceptions or clarifications are listed here: None This pt was admitted with afib RVR and moderate diastolic heart failure. she has good rate control with diltiazem, and cardiology did increase metoprolol vitals are improved car is irregularly irregular, lungs with basilar crackles afib rvr, rate control increase metoprolol and will decide on senior care anticoagulation after echocardiogram is reviewed Documented By: Gaston Morrison Resuscitation Status VTE Prophylaxis Will order VTE Prophylaxis: Yes Social Service Consult None Apply
[2018-02-15] MEDS ORDERED: ONDANSETRON INJ 2 MG/ML 2 ML VIAL IV PRN (09:45)
[2018-02-15] MEDS ORDERED: MAGNESIUM HYDROXIDE SUSP 30 ML UDC PO PRN (09:45)
[2018-02-15] MEDS ORDERED: ALUMINUM/MAGNESIUM/SIMETH (MAALOX MAX) 30 ML UDC PO PRN (09:45)
[2018-02-15] MEDS ORDERED: ACETAMINOPHEN 325 MG TAB PO PRN (09:45)
[2018-02-15] MEDS ORDERED: POLYETHYLENE (MIRALAX) 17 GM PACK PO PRN (09:45)
[2018-02-15] MEDS ORDERED: DILTIAZEM BOLUS / DRIP IV STA (09:49)
[2018-02-15] MEDS ORDERED: DILTIAZEM HCL INJ 125 MG in DEXTROSE 5% 100ML IV PRN (10:15)
[2018-02-15] MEDS: POTASSIUM CHLORIDE 20 MEQ TABCR PO SCH ×2 (11:20→20:35)
[2018-02-15] MEDS: METOPROLOL SUCC 25MG EXT REL TAB PO SCH (11:20)
[2018-02-15] MEDS ORDERED: METOPROLOL TARTRATE 1 MG/ML VIAL IV PRN (13:00)
[2018-02-15] MEDS: ENOXAPARIN 100 MG/1ML SYR SQ SCH (13:51)
--- NOTE | 2018-02-15 15:35 | ECHOCARDIOGRAM REPORT ---
*NOTICE TO RECEIVING LIBERTARIAN AGENCY This information is strictly Confidential and protected under [place] law. [place] law prohibits you from making any further disclosure of this information unless further disclosure is expressly permitted by the written consent of the person to whom it pertains or is authorized by law. A general authorization for the release of medical or other information is not sufficient for this purpose. Hospital accepts no responsibility if the information is made available to any other person, INCLUDING THE PATIENT. Interpretation Summary * Name: SALVADOR MELGAR Study Date: 02/15/2018 02:16 PM BP: 124/80 mmHg * Patient Location: [facility] HR: 88 * : 1945 (M/d/yyyy) Gender: Female Height: 68 in * Age: 72 yrs Ethnicity: CA Weight: 216 lb * Ordering Physician: Finesse Gayle * Referring Physician: Self, Referred * Performed By: Vanessa Bazan RDCS * * Reason For Study: A-fib * BSA: 2.1 m2 * -- Conclusions -- * Left ventricular systolic function is mildly reduced. * There is mild global hypokinesis of the left ventricle. * Ejection Fraction = 40-45%. * There is mild to moderate mitral regurgitation. * There is mild to moderate tricuspid regurgitation. Procedure Details * A complete two-dimensional transthoracic echocardiogram was performed (2D, M-mode, Doppler and color flow Doppler). Left Ventricle * The left ventricle is normal in size. * There is normal left ventricular wall thickness. * Ejection Fraction = 40-45%. * Left ventricular systolic function is mildly reduced. * There is mild global hypokinesis of the left ventricle. Right Ventricle * The right ventricle is not well visualized. * The right ventricular systolic function is normal as assessed by tricuspid annular plane systolic excursion (TAPSE) (normal >1.5 cm). Atria * The left atrium is moderately dilated. * Borderline right atrial enlargement. * There is no evidence of atrial septal defect, but resolution does not allow assessment for a patent foramen ovale. Mitral Valve * The mitral valve anatomy is normal. * There is no mitral valve stenosis. * There is mild to moderate mitral regurgitation. Tricuspid Valve * The tricuspid valve anatomy is normal. * There is no tricuspid stenosis. * There is mild to moderate tricuspid regurgitation. Aortic Valve * The aortic valve is trileaflet. * The aortic valve opens well. * No hemodynamically significant valvular aortic stenosis. * No aortic regurgitation is present. Pulmonic Valve * The pulmonary valve is not well seen, but the Doppler examination is normal without significant regurgitation or stenosis. Great Vessels * The aortic root is normal size. * The pulmonary is not well visualized. Pericardium/Pleural * There is no pericardial effusion. Great Vessels * Normal inferior vena cava size and collapsability with sniff indicates a normal right atrial pressure of 3 mmHg MMode 2D Measurements and Calculations IVSd 0.77 cm LVIDd 5.1 cm LVIDs 3.9 cm LVPWd 1.1 cm IVS/LVPW 0.69 FS 23.0 % EDV(Teich) 122.5 ml ESV(Teich) 66.3 ml EF(Teich) 45.9 % EDV(cubed) 130.8 ml ESV(cubed) 59.8 ml EF(cubed) 54.3 % LV mass(C)d 172.2 grams LV mass(C)dI 81.6 grams/m\S\2 SV(Teich) 56.2 ml SI(Teich) 26.6 ml/m\S\2 SV(cubed) 71.1 ml SI(cubed) 33.7 ml/m\S\2 Ao root diam 2.6 cm Ao root area 5.3 cm\S\2 ACS 1.8 cm LA dimension 4.3 cm asc Aorta Diam 2.4 cm LA/Ao 1.7 LVOT diam 1.8 cm LVOT area 2.7 cm\S\2 LVAd ap4 27.6 cm\S\2 LVLd ap4 6.8 cm EDV(MOD-sp4) 93.2 ml EDV(sp4-el) 95.3 ml LVAs ap4 19.6 cm\S\2 LVLs ap4 6.2 cm ESV(MOD-sp4) 51.1 ml ESV(sp4-el) 52.1 ml EF(MOD-sp4) 45.2 % EF(sp4-el) 45.3 % LVAd ap2 24.3 cm\S\2 LVLd ap2 6.4 cm EDV(MOD-sp2) 78.1 ml EDV(sp2-el) 78.0 ml LVAs ap2 17.4 cm\S\2 LVLs ap2 6.2 cm ESV(MOD-sp2) 41.8 ml ESV(sp2-el) 41.7 ml EF(MOD-sp2) 46.5 % EF(sp2-el) 46.5 % LVLd %diff -6.05 % EDV(MOD-bp) 87.6 ml LVLs %diff -0.71 % ESV(MOD-bp) 46.1 ml EF(MOD-bp) 47.4 % SV(MOD-sp4) 42.1 ml SI(MOD-sp4) 19.9 ml/m\S\2 SV(MOD-sp2) 36.3 ml SI(MOD-sp2) 17.2 ml/m\S\2 SV(MOD-bp) 41.5 ml SI(MOD-bp) 19.6 ml/m\S\2 SV(sp4-el) 43.2 ml SI(sp4-el) 20.5 ml/m\S\2 SV(sp2-el) 36.3 ml SI(sp2-el) 17.2 ml/m\S\2 Doppler Measurements and Calculations MV E max tram 121.3 cm/sec MV dec time 0.18 sec Ao V2 max 113.4 cm/sec Ao max PG 5.1 mmHg Ao max PG (full) 2.9 mmHg BENITA(V,A) 1.8 cm\S\2 BENITA(V,D) 1.8 cm\S\2 LV V1 max PG 2.3 mmHg LV V1 max 75.2 cm/sec PA V2 max 82.4 cm/sec PA max PG 2.7 mmHg PA acc slope 582.8 cm/sec\S\2 PA acc time 0.09 sec PI max tram 94.1 cm/sec PI max PG 3.5 mmHg PI dec slope 119.9 cm/sec\S\2 PI P1/2t 229.8 msec TR max tram 246.2 cm/sec PA pr(Accel) 37.8 mmHg
--- NOTE | 2018-02-15 16:34 | CARDIOLOGY CONSULTATION ---
DATE OF CONSULTATION: 02/15/2018 PERTINENT HISTORY: Mrs. Sanchez is a 72-year-old white female admitted earlier today in decompensated congestive failure and atrial fibrillation with rapid ventricular response. This consultation was ordered to assist in her cardiac management. The patient was in her usual state of health until approximately 1 week prior to presentation. She began to note progressive exertional dyspnea in that she could not even climb one flight of stairs without stopping to rest. She also noted an increase in her abdominal girth, early satiety, PND, and orthopnea. Last evening, the patient claims that she could not even sleep while upright in a reclining chair. Therefore, she presented to the Emergency Room for further care. On arrival here, the patient was noted to be hypoxic, and pulmonary edema, and was in atrial fibrillation with a rapid ventricular response. She was treated with intravenous diltiazem and furosemide with improvement in both her heart rate and her complaints of dyspnea. The patient did note occasional palpitations, especially when she was physically active and dyspneic. The patient has not experienced exertional chest pain. She further denies syncope, presyncope, change in her lower extremity edema, and claudication. The patient did undergo a stress echocardiogram in our office last February. This was done because of complaints of atypical chest discomfort. She had no evidence of myocardial ischemia. Her baseline echocardiogram noted normal left ventricular systolic function with an ejection fraction of 55-60%. There is mild LVH and evidence of mild mitral regurgitation. Currently, the patient is resting comfortably in bed at 45 degrees. She has dramatically improved over her status at time of presentation earlier today. PAST MEDICAL HISTORY: 1. Paroxysmal atrial fibrillation. 2. Mild tachycardic-induced cardiomyopathy. 3. Hypertension. 4. Hypothyroidism. 5. GERD. 6. Obstructive sleep apnea. 7. Diverticulosis. 8. Hysterectomy. 9. Right ear surgery. 10. Tonsillectomy and adenoidectomy. ALLERGIES: None. MEDICATIONS: 1. Lovenox 100 mg q. 12 hours. 2. Metoprolol succinate 50 mg per day. 3. Hyzaar 50/12.5 daily. 4. Lasix 40 mg IV q. 12 hours. 5. Potassium 20 mEq b.i.d. 6. Aspirin 81 mg per day. 7. Zoloft 50 mg per day. ALLERGIES: None. SOCIAL HISTORY: The patient became a in October 2016. Her son currently lives at home. She does not use tobacco or alcohol. FAMILY HISTORY: Noncontributory. REVIEW OF SYSTEMS: A 10-point review of systems was negative except for that described above. PHYSICAL EXAMINATION: GENERAL: This is an obese white female lying supine in bed without complaints. VITAL SIGNS: Blood pressure is 110/70 with an irregular pulse of 80-90. Respiratory rate is 20. The patient is afebrile at 36.9 degrees Celsius. Saturations 95% on room air. HEENT: Negative. NECK: Supple with full carotid upstrokes. No carotid bruits. Jugular venous pressure is flat at 90 degrees. There is no thyromegaly. CARDIOVASCULAR: Reveals irregular irregular rhythm with distant heart sounds. No obvious murmurs. LUNGS: Clear without rales, rhonchi, or wheezes. ABDOMEN: Obese without bruits. EXTREMITIES: Reveal intact radial artery pulse bilaterally. Trace pedal edema is noted. LABORATORY DATA: CBC notes hemoglobin 13.5, hematocrit 40.5, white count 7.2, and platelet count 216,000. Electrolytes note a sodium of 142, potassium 3.4, chloride 107, bicarbonate 27, BUN 10, creatinine 1.01, and glucose 142. Troponin I levels undetectable at less than 0.015. BNP is elevated at 3036. IMAGING DATA: EKG notes atrial fibrillation with a rapid ventricular response, low voltage throughout, poor R-wave progression across the anterior precordium. Chest x-ray notes cardiomegaly and mild pulmonary edema. A CT scan of the chest notes no evidence of pulmonary embolism. IMPRESSION: Mrs. Sanchez was admitted in decompensated systolic congestive heart failure, likely secondary to her atrial fibrillation with a rapid ventricular response. Uncertain as to the onset of her atrial fibrillation; however, suspect it was several weeks ago. Her ventricular response has been easy to control thus far. Agree with aggressive diuresis. Of note, she had normal left ventricular systolic function at the time of a dobutamine stress test in February 2017. PLAN: 1. Agree with aggressive intravenous diuresis. 2. Agree with continuation of Hyzaar. 3. Agree with addition of metoprolol succinate 50 mg daily. 4. Would check TSH level. 5. Further recommendation pending on her clinical course.
[2018-02-15] MEDS: FUROSEMIDE INJ 40 MG in SYRINGE 0 ML IV SCH (18:05)
[2018-02-15] MEDS: SERTRALINE HCL 50 MG TAB PO SCH (20:35)
[2018-02-16] MEDS: ENOXAPARIN 100 MG/1ML SYR SQ SCH ×2 (01:55→14:13)
[2018-02-16 03:55] VITALS: BP 112/68; PULSE 71; TEMP 37; O2SAT 91
[2018-02-16 04:37] LABS: BLOOD UREA NITROGEN 12 mg/dl (7-18); CALCIUM 8.4 mg/dl (8.5-10.1); CARBON DIOXIDE 30 mmol/L (21-32); CREATININE 0.97 mg/dl (0.60-1.20); GLUCOSE 110 mg/dl (70-99); POTASSIUM 3.8 mmol/L (3.5-5.1); SODIUM 140 mmol/L (136-145)
[2018-02-16] MEDS: FUROSEMIDE INJ 40 MG in SYRINGE 0 ML IV SCH (05:35)
[2018-02-16] MEDS: LEVOTHYROXINE 125 MCG TAB PO SCH (05:36)
[2018-02-16] MEDS: ASPIRIN 81 MG ECTAB PO SCH (07:35)
[2018-02-16] MEDS: POTASSIUM CHLORIDE 20 MEQ TABCR PO SCH ×2 (07:36→20:23)
[2018-02-16] MEDS: LOSARTAN/HCTZ 50-12.5 EA TAB PO SCH (07:36)
[2018-02-16] MEDS: MULTIVITAMIN TAB PO SCH (07:36)
[2018-02-16] MEDS: METOPROLOL SUCC 25MG EXT REL TAB PO SCH (07:37)
[2018-02-16 07:45] VITALS: BP 117/80; PULSE 97; TEMP 37; O2SAT 92
--- NOTE | 2018-02-16 09:37 | Hospitalist Progress Note ---
Hospitalist Progress Note Date of Service Feb 16, 2018. (Finesse Gayle CRNP) Subjective Pt evaluation today including: conversation w/ patient, physical exam, chart review, lab review, review of studies, review of inpatient medication list Pain: denies any chest pain PO Intake: tolerating PO Voiding: no voiding problems no chest pain or shortness of breath - feels much better this morning, but has some fatigue. Denies palpitations (Finesse Gayle CRNP) Medications inpatient medications reviewed (Finesse Gayle CRNP) Objective Vital Signs Date Time Temp Pulse Resp B/P (MAP) Pulse Ox O2 Delivery O2 Flow Rate FiO2 02/16/18 08:00 Room Air 02/16/18 07:45 37.0 97 19 117/80 (92) 92 Room Air 02/16/18 04:00 Room Air 02/16/18 03:55 37.0 71 16 112/68 (83) 91 Room Air 02/16/18 00:00 Room Air 02/15/18 23:43 37.2 107 16 121/73 (89) 91 Room Air 02/15/18 23:41 127 127/81 02/15/18 20:00 Room Air 02/15/18 19:51 37.2 92 18 122/79 (93) 93 Room Air 02/15/18 16:00 Room Air 02/15/18 15:44 36.9 96 20 110/75 (87) 95 Room Air 02/15/18 12:00 Nasal Cannula 2.0 02/15/18 11:20 36.3 88 20 124/80 (95) 91 Room Air 02/15/18 10:40 36.7 98 16 145/76 (99) 95 Nasal Cannula 2.0 02/15/18 10:16 84 16 137/80 93 (Finesse Gayle CRNP) Physical Exam General Appearance: WD/WN Eyes: normal inspection, PERRL, sclerae normal ENT: hearing grossly normal, pharynx normal Neck: supple, no JVD Respiratory/Chest: chest non-tender, lungs clear, normal breath sounds Cardiovascular: no edema, no JVD, no murmur, + irregularly irregular Abdomen: normal bowel sounds, non tender Extremities: normal range of motion, non-tender, no pedal edema Neurologic/Psychiatric: alert, oriented x 3 Skin: normal color, warm/dry, no rash (Finesse Gayle ., CABLE TOOL OPERATOR) Laboratory Results Last 24 Hours Test 02/15/18 15:48 02/15/18 21:59 02/16/18 03:51 Troponin I < 0.015 ng/ml < 0.015 ng/ml < 0.015 ng/ml Sodium Level 140 mmol/L Potassium Level 3.8 mmol/L Chloride Level 104 mmol/L Carbon Dioxide Level 30 mmol/L Anion Gap 6.0 mmol/L Blood Urea Nitrogen 12 mg/dl Creatinine 0.97 mg/dl Est Creatinine Clear Calc Drug Dose 63.2 ml/min Estimated GFR () 67.2 Estimated GFR (Non- 57.9 BUN/Creatinine Ratio 12.8 Random Glucose 110 mg/dl Calcium Level 8.4 mg/dl (Finesse Gayle ., CABLE TOOL OPERATOR) Diagnostic Results ECHO * Left ventricular systolic function is mildly reduced. * There is mild global hypokinesis of the left ventricle. * Ejection Fraction = 40-45%. * There is mild to moderate mitral regurgitation. * There is mild to moderate tricuspid regurgitation. (Finesse Gayle ., CABLE TOOL OPERATOR) Assessment and Plan 1. Paroxysmal atrial fibrillation with RVR - -remains in Afib - HR in 90s currently. Cardizem was stopped yesterday due to bradycardia. Had one dose of IV Lopressor last night. -[id number] is 4. Currently on Lovenox. - looks like nonvalvular A-fib so can use one of the newer oral anticoagulants -Appreciate cards input. - Toprol increased to 50mg 2. Acute exac systolic CHF - likely exacerbated by Afib - ECHO EF 45% with mild reduced systolic function. - lungs clear today - sats low 90s on room air. - cont Toprol, ARB, ASA -IV lasix - consider switching to oral lasix later -strict I/O, daily weight down 2kg from yesterday - monitor lytes on lasix - cont PO K+ 3. HTN - continue DEANNA and BB, monitor with cardizem and lasix 4. Full Code 5. DVT prophylaxis with SCD, TEDs, and lovenox 6. disposition - at least one more day - continue diuresis. Await cards input on A-fib Continued [facility] stay due to: other (ongoing IV diuretics - remains in Afib) Discharge planning: home (Finesse Gayle ., [place]) [place] Physician Supervision Note: I interviewed and examined the patient. Discussed with Finesse ATKINSON and agree with findings and plan as documented in the note. Any exceptions or clarifications are listed here: None This pt is improved, echo reveals some reduction in EF that cardiology feels maybe rate related, increased metoprolol to 50 bid, still not confirmed component assembler anticoagulation vss 37 97 19 117/80 Car is irreg irreg, still in afib lungs are improved and clear Afib initially rvr adn now tacchyarrythmia induced cardiomyopathy with systolic heart failure. increased metoprolol, continue lovenox, consider doac for senior living AC Documented By: Gaston Morrison (Gaston Morrison M.D.)
[2018-02-16 11:41] VITALS: BP 111/74; PULSE 92; TEMP 37; O2SAT 92
--- NOTE | 2018-02-16 14:24 | CARDIOLOGY PROGRESS NOTE ---
DATE: 02/16/2018 SUBJECTIVE: Mrs. Sanchez is resting comfortably in bed without complaints of chest pain or dyspnea. She was able to sleep at approximately 20 degrees last evening. Symptomatic improvement of her presenting status. OBJECTIVE: VITAL SIGNS: Blood pressure is 111/74 with an irregular pulse of 90. Respiratory rate is 18. The patient is afebrile at 37.7 degrees Celsius. Saturations 92% on room air. NECK: Supple with full carotid upstrokes. There are no carotid bruits. Jugular venous pressure is flat at 90 degrees. There is no thyromegaly. CARDIOVASCULAR: Reveals an irregularly irregular rhythm with distant heart sounds. No obvious murmurs. LUNGS: Clear without rales, rhonchi, or wheeze. ABDOMEN: Obese without bruits. EXTREMITIES: Reveal intact radial artery pulse bilaterally. Trace pretibial edema is noted. LABORATORY AND IMAGING DATA: Electrolytes notes a sodium of 140, potassium 3.8, chloride 104, bicarbonate 30, BUN 12, creatinine 0.97, and glucose 110. Troponin I level remains undetectable less than 0.015. desk monitor notes atrial fibrillation with a heart rate varying from 75 to 100. IMPRESSION AND PLAN: 1. Paroxysmal atrial fibrillation -- would increase metoprolol succinate to 50 mg b.i.d. Hopefully, this will better control her ventricular response. 2. Mild tachycardic induced cardiomyopathy -- ejection fraction 40-45% with mild global hypokinesis. Hopefully, this will improve with better control of his heart rate and possible conversion to sinus rhythm. 3. Hypertension -- controlled. 4. Hypothyroidism. 5. Gastroesophageal reflux disease. 6. Obstructive sleep apnea.
[2018-02-16 14:58] VITALS: BP 116/75; PULSE 99; TEMP 37; O2SAT 97
[2018-02-16] MEDS: FUROSEMIDE 40 MG TAB PO SCH (17:07)
[2018-02-16 18:58] VITALS: BP 104/64; PULSE 91; TEMP 36.8; O2SAT 93
[2018-02-16] MEDS: SERTRALINE HCL 50 MG TAB PO SCH (20:24)
[2018-02-16] MEDS: METOPROLOL SUCC 50MG EXT REL TAB PO SCH (20:25)
[2018-02-17 00:18] VITALS: BP 119/68; PULSE 88; TEMP 36.6; O2SAT 92
[2018-02-17] MEDS: ENOXAPARIN 100 MG/1ML SYR SQ SCH (02:02)
[2018-02-17 04:00] VITALS: BP 125/88; PULSE 83; TEMP 36.5; O2SAT 92
[2018-02-17] MEDS: LEVOTHYROXINE 125 MCG TAB PO SCH (06:02)
[2018-02-17 07:20] VITALS: BP 125/86; PULSE 90; TEMP 36.6; O2SAT 93
[2018-02-17] MEDS: MULTIVITAMIN TAB PO SCH (07:42)
[2018-02-17] MEDS: FUROSEMIDE 40 MG TAB PO SCH (07:42)
[2018-02-17] MEDS: METOPROLOL SUCC 50MG EXT REL TAB PO SCH ×2 (07:42→20:26)
[2018-02-17] MEDS: POTASSIUM CHLORIDE 20 MEQ TABCR PO SCH (07:43)
[2018-02-17] MEDS: ASPIRIN 81 MG ECTAB PO SCH (07:43)
[2018-02-17] MEDS: LOSARTAN/HCTZ 50-12.5 EA TAB PO SCH (07:43)
[2018-02-17 08:10] LABS: CALCIUM 8.4 mg/dl (8.5-10.1); CREATININE 0.94 mg/dl (0.60-1.20); POTASSIUM 3.7 mmol/L (3.5-5.1)
--- NOTE | 2018-02-17 10:01 | CARDIOLOGY PROGRESS NOTE ---
DATE: 02/17/2018 SUBJECTIVE: Mrs. Sanchez is resting comfortably in bed without complaints of chest pain, dyspnea, or palpitations. She is anxious for hospital discharge. OBJECTIVE: VITAL SIGNS: Blood pressure 125/86 with an irregular pulse of 90. Respiratory rate is 18. The patient is afebrile at 36.6 degrees Celsius. Saturations 93% on room air. Weight is down a total of 3.7 kilograms since admission. NECK: Supple with full carotid upstrokes. No carotid bruits. Jugular venous pressure is flat at 90 degrees. There is no thyromegaly. CARDIOVASCULAR: Reveals an irregular rhythm with distant heart sounds. No obvious murmurs. LUNGS: Clear without rales, rhonchi, or wheeze. ABDOMEN: Soft, nontender without bruits. EXTREMITIES: Reveal intact radial artery pulses bilaterally. Trace pretibial edema is noted. DATA: Electrolytes note a sodium of 140, potassium 3.7, chloride 101, bicarbonate 34, BUN 16, creatinine 0.9, glucose 89. protocol manager notes atrial fibrillation with occasional elevation in the ventricular response. IMPRESSION AND PLAN: 1. Paroxysmal atrial fibrillation -- ventricular response, still somewhat elevated. Would increase metoprolol succinate to 100 mg q.a.m. and 50 mg q.p.m. Would favor initiation of one of the newer anticoagulation agents. I will be happy to follow the patient in our [place] office. 2. Mild tachycardic induced cardiomyopathy -- ejection fraction of 40-45%. Will recheck as an outpatient once her heart rate is better controlled, or with conversion to sinus rhythm. 3. Hypertension. 4. Hypothyroidism. 5. Gastroesophageal reflux disease. 6. Obstructive sleep apnea.
--- NOTE | 2018-02-17 11:42 | Hospitalist Progress Note ---
Hospitalist Progress Note Date of Service Feb 17, 2018. (Finesse Gayle CRNP) Subjective Pt evaluation today including: conversation w/ patient, physical exam, chart review, lab review, review of studies, review of inpatient medication list Pain: denies PO Intake: paul PO Voiding: no voiding problems has some palpitations today, some slight SOB. No chest pain, no fever or chills (Finesse Gayle CRNP) Medications reviewed (Finesse Gayle CRNP) Objective Vital Signs Date Time Temp Pulse Resp B/P (MAP) Pulse Ox O2 Delivery O2 Flow Rate FiO2 02/17/18 08:00 Room Air 02/17/18 07:20 36.6 90 18 125/86 (99) 93 Room Air 02/17/18 04:00 36.5 83 16 125/88 (100) 92 Room Air 02/17/18 04:00 Room Air 02/17/18 00:18 36.6 88 16 119/68 (85) 92 Room Air 02/16/18 23:59 Room Air 02/16/18 20:00 Room Air 02/16/18 18:58 36.8 91 18 104/64 (77) 93 Room Air 02/16/18 16:00 Room Air 02/16/18 14:58 37.0 99 17 116/75 (89) 97 Room Air 02/16/18 12:00 Room Air 02/16/18 11:41 37.0 92 18 111/74 (86) 92 Room Air (Finesse Gayle CRNP) Physical Exam General Appearance: no apparent distress Eyes: normal inspection ENT: normal ENT inspection Neck: supple, no JVD Respiratory/Chest: chest non-tender, lungs clear, normal breath sounds Cardiovascular: no edema, no murmur, + irregularly irregular Abdomen: normal bowel sounds, non tender, soft Extremities: normal range of motion, normal inspection, no pedal edema Neurologic/Psychiatric: alert, normal mood/affect, oriented x 3 Skin: normal color, warm/dry, no rash (Finesse Gayle CRNP) Laboratory Results Last 24 Hours Test 02/17/18 07:08 Sodium Level 140 mmol/L Potassium Level 3.7 mmol/L Chloride Level 101 mmol/L Carbon Dioxide Level 34 mmol/L Anion Gap 5.0 mmol/L Blood Urea Nitrogen 16 mg/dl Creatinine 0.94 mg/dl Est Creatinine Clear Calc Drug Dose 64.0 ml/min Estimated GFR () 69.8 Estimated GFR (Non- 60.2 BUN/Creatinine Ratio 16.6 Random Glucose 89 mg/dl Calcium Level 8.4 mg/dl (Finesse Gayle CRNP) Assessment and Plan 1. Paroxysmal atrial fibrillation with RVR - -remains in Afib - HR in 90s to 100s currently. Patient seems to be a little symptomatic from it. - Appreciate Dr. Salas input. -[id number] is 4. Currently on Lovenox. - looks like nonvalvular A-fib so. - discussed risks/benefits of coumain vs NOADs - will start on Xarelto. - Toprol increased to 100mg in am and 50mg in the evening by Dr. Salas this morning. 2. Acute exac systolic CHF - likely exacerbated by Afib - ECHO EF 45% with mild reduced systolic function. - lungs clear today - sats low 90s on room air. - cont Toprol, ARB, ASA -Decrease oral lasix to once daily -strict I/O, daily weight - weight down to 94.3kg from 98kg on admit - monitor lytes on lasix - cont PO K+ 3. HTN - continue ARB and BB, monitor with lasix and increased BB dose 4. Full Code 5. DVT prophylaxis with SCD, TEDs, will be adding Xarelto 6. disposition - likely home tomorrow. Continued [facility] stay due to: other (titrating Afib medications) Discharge planning: home with home health (Finesse Gayle CRNP) [place] Physician Supervision Note: I interviewed and examined the patient. Discussed with Finesse ATKINSON and agree with findings and plan as documented in the note. Any exceptions or clarifications are listed here: None This pt is about the same still subjective palpitations and some heart rates about 90, will see if increased metoprolol helps may consider alternative agent if still with symptos vitals are stable, lungs clear cardiac is irregularly irregular Atrial fibrillation with RVR and acute diastolic and systolic heart failure present on admission. The systolic heart failure is secondary to tachyarrhythmia patient is improved with regard to her pulmonary edema with diuretic therapy and attempting to achieve better rate control with metoprolol Xarelto has been chosen for long-term anticoagulation in this patient Documented By: Gaston Morrison (Gaston Morrison M.D.)
[2018-02-17 11:44] VITALS: BP 114/75; PULSE 84; TEMP 36.6; O2SAT 95
[2018-02-17] MEDS ORDERED: RIVAROXABAN 10 MG TAB PO SCH (14:00)
[2018-02-17 15:09] VITALS: BP 137/81; PULSE 94; TEMP 37.1; O2SAT 92
[2018-02-17 19:20] VITALS: BP 117/71; PULSE 80; TEMP 36.9; O2SAT 93
[2018-02-17] MEDS: SERTRALINE HCL 50 MG TAB PO SCH (20:27)
[2018-02-18 00:04] VITALS: BP 128/85; PULSE 89; TEMP 36.7; O2SAT 97
[2018-02-18 04:03] VITALS: BP 119/70; PULSE 89; TEMP 36.9; O2SAT 96
[2018-02-18] MEDS: LEVOTHYROXINE 125 MCG TAB PO SCH (05:48)
[2018-02-18 07:25] VITALS: BP 132/80; PULSE 86; TEMP 37; O2SAT 95
[2018-02-18] MEDS: METOPROLOL SUCC 50MG EXT REL TAB PO SCH (07:54)
[2018-02-18] MEDS: LOSARTAN/HCTZ 50-12.5 EA TAB PO SCH (07:54)
[2018-02-18] MEDS: ASPIRIN 81 MG ECTAB PO SCH (07:54)
[2018-02-18] MEDS: MULTIVITAMIN TAB PO SCH (07:55)
[2018-02-18 07:56] LABS: CALCIUM 8.8 mg/dl (8.5-10.1); CREATININE 0.99 mg/dl (0.60-1.20); POTASSIUM 3.8 mmol/L (3.5-5.1)
[2018-02-18] MEDS ORDERED: FUROSEMIDE 40 MG TAB PO SCH (09:00)
[2018-02-18] MEDS ORDERED: POTASSIUM CHLORIDE 20 MEQ TABCR PO SCH (09:00)
[2018-02-18] MEDS ORDERED: METOPROLOL SUCC 50MG EXT REL TAB PO STA (09:31)
[2018-02-18] MEDS ORDERED: POTA1CAP2 PO (09:44)
[2018-02-18] MEDS ORDERED: TPRSR50 PO (09:44)
[2018-02-18] MEDS ORDERED: XRL10 PO (09:44)
[2018-02-18] MEDS ORDERED: FURO40TA3 PO (09:44)
--- NOTE | 2018-02-18 09:50 | Discharge Instructions ---
Discharge Instructions Date of Service Feb 18, 2018. Admission Reason for Admission: New Onset A-Fib,New Onset Congestive Heart Failure Discharge Discharge Diagnosis / Problem: atrial fibrillation and congestive heart failure Discharge Goals Goal(s): Improve function, Learn about illness Activity Recommendations Activity Limitations: resume your previous activity Lifting Limitations: gradually increase as tolerated Exercise/Sports Limitations: as tolerated Shower/Bathe: no limitations Driving or Machine Use: no limitations . Instructions / Follow-Up Instructions / Follow-Up You were diagnosed with atrial fibrillation (an irregular heart beat) and systolic heart failure. The atrial fibrillation puts you at increased risk of a stroke occurring and you will be discharged on a blood thinner - Xarelto. Xarelto does increase your risk of bleeding. You should also weigh yourself daily at the same time with the same clothes on. Do this the morning after discharge. This will be your baseline weight. You will be given a diuretic - lasix to use as needed if your weight increases 3 lbs above your baseline. You will continue to take the lasix until your weight returns to your baseline. When you are taking lasix, you will also need to use potassium. Current Hospital Diet Patient's current hospital diet: Low Sodium Diet (2gm Na), AHA Diet (Heart Healthy) Discharge Diet Recommended Diet: AHA Diet (Heart Healthy), Low Sodium Diet (2gm Na) Pending Studies Studies pending at discharge: no Laboratory Results Lipid Panel Test 12/02/17 12:27 Range/Units Triglycerides Level 84 0-150 mg/dl Cholesterol Level 183 0-200 mg/dl HDL Cholesterol 58 mg/dl Cholesterol/HDL Ratio 3.2 LDL Cholesterol, Calculated 108 mg/dl Medical Emergencies . Who to Call and When: Medical Emergencies: If at any time you feel your situation is an emergency, please call 911 immediately. . Non-Emergent Contact Non-Emergency issues call your: Primary Care Provider Call Non-Emergent contact if: you have any medication questions If you develop chest pain or shortness of breath, you should call your PCP. If unable to get a hold of them, call 911 or return to the emergency department . . "Provider Documentation" section prepared by Finesse Gayle. .
[2018-02-18 10:02] VITALS: BP 132/80; PULSE 86; TEMP 37; O2SAT 95
--- NOTE | 2018-02-18 10:05 | Discharge Summary ---
Discharge Summary Date of Service Feb 18, 2018. Discharge Summary Admission Date: Feb 15, 2018 at 09:48 Discharge Date: Feb 18, 2018 Discharge Disposition: Home Principal Diagnosis: afib with RVR Problems/Secondary Diagnoses: systolic heart failure Medication Reconciliation New Medications: Furosemide (Lasix) 40 Mg Tab 1 TAB PO DAILY for 30 Days, #30 TAB 0 Refills Potassium Chloride (Potassium Chloride Er) 10 Meq Cap 1 CAP PO DAILY PRN for lasix, #30 CAP 0 Refills take only on days you take lasix Metoprolol Succinate (Metoprolol Succinate ER) 50 Mg Tabcr 50 MG PO BID, #90 TAB 0 Refills Rivaroxaban (Xarelto) 10 Mg Tab 20 MG PO QDD, #30 TAB take with evening meal Continued Medications: Aspirin (Aspirin Ec) 81 Mg Tab 81 MG PO QAM Hctz/Losartan (Hyzaar 25MG/100MG) 1 Ea Tab 1 TAB PO DAILY Levothyroxine Sodium (Levothyroxine Sodium) 125 Mcg Tab 125 MCG PO QAM Multivitamin (Multivitamin) Tab 1 TAB PO QAM, TAB Sertraline (Zoloft) 50 Mg Tab 50 MG PO HS, TAB Discontinued Medications: Metoprolol Tartrate (Lopressor) (Lopressor) 25 Mg Tab 25 MG PO QAM, TAB Discharge Exam Review of Systems: Constitutional: No fever, No chills, No sweats, No weight loss, No weakness , No fatigue, No problem reported Eyes: No worsening of vision, No eye pain, No redness, No discharge, No diplopia, No problem reported ENT: No hearing loss, No unusual epistaxis, No nasal symptoms, No sore throat, No tinnitus, No dental problems, No trouble swallowing, No problem reported Respiratory: No cough, No sputum, No wheezing, No shortness of breath, No dyspnea on exertion, No dyspnea at rest, No hemoptysis, No problem reported Cardiovascular: + palpitations (had occassinal palpitations over night. No associated with significant tachyarrythmia events), No chest pain, No orthopnea , No PND, No edema, No claudication, No problem reported Abdomen: No pain, No nausea, No vomiting, No diarrhea, No constipation, No GI bleeding, No problem reported Musculoskeletal: No joint pain, No muscle pain, No swelling, No calf pain, No problem reported Neurologic: No memory loss, No paralysis, No weakness, No numbness/tingling , No vertigo, No balance problems, No problem reported Physical Exam: General Appearance: WD/WN Eyes: normal inspection ENT: hearing grossly normal Neck: supple, no JVD Respiratory/Chest: chest non-tender, lungs clear, normal breath sounds Cardiovascular: no murmur, + irregularly irregular Abdomen / GI: normal bowel sounds, non tender, soft Extremities: normal inspection, no calf tenderness, no pedal edema Neurologic/Psychiatric: alert, normal mood/affect, oriented x 3 Skin: normal color, warm/dry, no rash Hospital Course 1. Paroxysmal atrial fibrillation with RVR - -remains in Afib - HR in the 80s to 90s. Does get some occasional palpitations however was able to walk in the [place] with out any significant elevation in HR and was asymptomatic. - Appreciate Dr. Salas input. -[id number] is 4. nonvalvular A-fib - started on Xarelto - Toprol increased to 100mg in am and 50mg in the evening by Dr. Salas this morning. 2. Acute exac systolic CHF - likely exacerbated by Afib - ECHO EF 45% with mild reduced systolic function. - lungs clear today - sats low 90s on room air. - cont Toprol, ARB, ASA - Dr. Salas wants her to use lasix just PRN for start and he will monitor this with her. -strict I/O, daily weight - weight down to 92.3kg from 98kg on admit 3. HTN - continue ARB and BB, monitor with lasix and increased BB dose 4. Full Code 5. DVT prophylaxis with SCD, TEDs, Xarelto 6. disposition - home today - follow up with cards and pcp. [place] Physician Supervision Note: I interviewed and examined the patient. Discussed with Finesse ATKINSON and agree with findings and plan as documented in the note. Any exceptions or clarifications are listed here: None This pt is about the same still subjective palpitations and some heart rates about 90, will see if increased metoprolol helps may consider alternative agent if still with symptos vitals are stable, lungs clear cardiac is irregularly irregular Atrial fibrillation with RVR and acute diastolic and systolic heart failure present on admission. The systolic heart failure is secondary to tachyarrhythmia patient is improved with regard to her pulmonary edema with diuretic therapy and attempting to achieve better rate control with metoprolol Xarelto has been chosen for long-term anticoagulation in this patient Documented By: Gaston Morrison Total Time Spent: Greater than 30 minutes This includes examination of the patient, discharge planning, medication reconciliation, and communication with other providers. Discharge Instructions Please refer to the electronic Patient Visit Report (Discharge Instructions) for additional information.
[2018-02-18 11:32] VITALS: BP 126/77; PULSE 82; TEMP 36.7; O2SAT 96
--- NOTE | 2018-02-18 12:32 | CARDIOLOGY PROGRESS NOTE ---
DATE: 02/18/2018 SUBJECTIVE: Mrs. Sanchez is resting comfortably at the bedside without complaints of chest pain, dyspnea, or palpitations. She is anxious for hospital discharge. We have discussed the concept of daily weights and sliding scale diuretics. She voices an understanding. OBJECTIVE: VITAL SIGNS: Blood pressure 126/77 with a regular pulse of 80. Respiratory rate is 18. The patient is afebrile at 36.7 degree Celsius. Saturations 96% on room air. NECK: Supple with full carotid upstrokes. No carotid bruits. Jugular venous pressure is flat at 90 degrees. There is no thyromegaly. CARDIOVASCULAR: Reveals a regular rhythm with distant heart sounds. No obvious murmurs. LUNGS: Clear without rales, rhonchi, or wheeze. ABDOMEN: Obese without bruits. EXTREMITIES: Reveal intact radial pulses bilaterally. There is no peripheral edema. DATA: Electrolytes note a sodium of 138, potassium 3.8, chloride 102, bicarbonate 32, BUN 15, creatinine 0.99, glucose 94. surveillance system monitor notes atrial fibrillation with a controlled ventricular response. IMPRESSION AND PLAN: 1. Paroxysmal atrial fibrillation -- would discharge to home on metoprolol succinate 100 mg q.a.m. and 50 mg q.p.m. Agree with use of Xarelto 20 mg daily. Will make arrangements for an outpatient office visit in our [facility]. 2. Mild tachycardic induced cardiomyopathy -- ejection fraction of 40-45%. Will recheck as an outpatient once her heart rate adequately controlled and/or conversion to sinus rhythm. 3. Hypertension -- controlled. 4. Hypothyroidism. 5. Gastroesophageal reflux disease. 6. Obstructive sleep apnea.
[2018-02-18] MEDS ORDERED: RIVA1TAB4 PO (19:17)
== END 2018-02-18 12:56 | disposition home or self-care (01) | DRG 308 ==
LOC: C.EDB 06:48 → C.2T 09:48 → ENRESERV 09:55
PROVIDERS: ADMIT Internal Medicine; ATTEND Internal Medicine
DX: I48.0 Paroxysmal atrial fibrillation (principal); I11.0 Hypertensive heart disease with heart failure; I50.23 Acute on chronic systolic (congestive) heart failure; I42.8 Other cardiomyopathies; E03.9 Hypothyroidism, unspecified; K21.9 Gastro-esophageal reflux disease without esophagitis; G47.33 Obstructive sleep apnea (adult) (pediatric); Z79.82 Long term (current) use of aspirin; Z79.899 Other long term (current) drug therapy; Z87.891 Personal history of nicotine dependence

== ENCOUNTER → 2018-02-22 | Outpatient (CLI) | payer BC ==
[~2018-02-22] MED LIST changes: -CRAN1CAP15 PO; +FURO40TA3 PO; +HYZ/10015 PO; -KRIL1CAP18 PO; -LOSA100T2 PO; -METO25TA56 PO; +POTA1CAP2 PO; -PRLSR20 PO; +RIVA1TAB4 PO; +TPRSR50 PO
[2018-02-22 13:23] LABS: BLOOD UREA NITROGEN 16 mg/dl (7-18); CALCIUM 9.1 mg/dl (8.5-10.1); CARBON DIOXIDE 32 mmol/L (21-32); CREATININE 0.98 mg/dl (0.60-1.20); GLUCOSE 96 mg/dl (70-99); POTASSIUM 4.2 mmol/L (3.5-5.1); SODIUM 140 mmol/L (136-145)
== END | disposition home or self-care (01) ==
LOC: C.LABPBG 09:49
PROVIDERS: ATTEND Internal Medicine Cardiovascular Disease
DX: I50.9 Heart failure, unspecified (principal)

== ENCOUNTER → 2018-03-18 | Outpatient (CLI) | payer BC ==
[2018-03-18 14:41] LABS: BLOOD UREA NITROGEN 17 mg/dl (7-18); CALCIUM 9.2 mg/dl (8.5-10.1); CARBON DIOXIDE 30 mmol/L (21-32); CREATININE 0.95 mg/dl (0.60-1.20); GLUCOSE 105 mg/dl (70-99); SODIUM 140 mmol/L (136-145)
== END | disposition home or self-care (01) ==
LOC: C.LABPBG 10:21
PROVIDERS: ATTEND Physician Assistant
DX: R10.9 Unspecified abdominal pain (principal); I50.9 Heart failure, unspecified

== ENCOUNTER 2018-07-08 19:54 | Emergency (ER) | payer BC ==
[~2018-07-08] VITALS: Ht 175.3 cm; Wt 94.0 kg
[2018-07-08 20:00] VITALS: TEMP 37; Ht 175.3 cm; Wt 94.0 kg
--- NOTE | 2018-07-08 20:56 | EMERGENCY ROOM VISIT NOTE ---
History Report prepared by Chris: Raoul Londono Under the Supervision of: Dr. Dewey Gee M.D. First contact with patient: 20:37 Chief Complaint: WOUND INFECTION Stated Complaint: BITE ON BACK Nursing Triage Summary: Pt reports Wednesday night while pulling weeds she had a sharp pain to left lower back. Suspected insect bite or sting. Area was red with pinpoint area were pt suspected she was bit or stung. Area started to swell and developed pustule at center. Pt reports she tx area with antibiotic ointment and redness spread. Area to left lower back is red, swollen, and hot to touch, scab to center. History of Present Illness The patient is a 73 year old white female with a past medical history of GERD, hypothyroidism, CHF who presents to the ED with a cc of worsening bite to the left lower back beginning two nights ago. Positive itchiness, worsening redness. Negative drainage from the wound, trouble swallowing, nausea, vomiting , shortness of breath. Pt states she was outside pulling weeds two nights ago and felt a sting. She reports she thought it was a bee. Pt notes since then, the redness has worsened, and it has become very itchy. She states it no longer is painful. Pt reports she has not taken anything for her symptoms. She notes she used antibiotic cream and a baking soda paste with mild relief. Source of History: patient Onset: two nights ago Position: back (lower, left) Quality: other (bite) Timing: worsening Associated Symptoms: No SOB, No nausea, No vomiting Note: Associated symptoms; redness and itchiness Denies: drainage from the wound, trouble swallowing Review of Systems See HPI for pertinent positives and negatives. A total of ten systems were reviewed and were otherwise negative. Past Medical & Surgical Medical Problems: (1) CHF (congestive heart failure) (2) Gastro-Esophageal Reflux Disease Without Esophagitis (3) Hypothyroidism, Unspecified (4) Sciatica Family History Diabetes mellitus Heart disease Hypertension Social History Smoking Status: Former Smoker Alcohol Use: none Drug Use: none Housing Status: lives with family Occupation Status: employed Current/Historical Medications Scheduled Aspirin (Aspirin Ec), 81 MG PO QAM Cephalexin Monohydrate (Keflex), 500 MG PO QID Furosemide (Lasix), 1 TAB PO DAILY Hctz/Losartan (Hyzaar 25MG/100MG), 1 TAB PO DAILY Levothyroxine Sodium (Levothyroxine Sodium), 125 MCG PO QAM Metoprolol Succinate (Metoprolol Succinate ER), 50 MG PO BID Multivitamin (Multivitamin), 1 TAB PO QAM Prednisone (Prednisone), 20 MG PO DAILY Rivaroxaban (Xarelto), 1 TAB PO DAILY Sertraline (Zoloft), 50 MG PO HS Scheduled PRN Potassium Chloride (Potassium Chloride Er), 1 CAP PO DAILY PRN for lasix Allergies Coded Allergies: NO KNOWN DRUG ALLERGIES (Verified Allergy, Unknown, NKDA, 02/15/18) Physical Exam Vital Signs Date Time Temp Pulse Resp B/P (MAP) Pulse Ox O2 Delivery O2 Flow Rate FiO2 07/08/18 22:00 95 17 153/90 96 07/08/18 20:00 37.0 82 20 156/77 95 Room Air Physical Exam GENERAL: Awake, alert, well-appearing, NAD HENT: Normocephalic, atraumatic. EYES: Normal conjunctiva. Sclera non-icteric. PERRL. No anisocoria. NECK: Supple. No nuchal rigidity. FROM. RESPIRATORY: CTAB, no rhonchi, wheezing, crackles CARDIAC: RRR, no MRG ABDOMEN: Soft, NTND, BS+ MSK: No chest wall TTP, no LE edema NEURO: GCS 15, CN 2-12 intact, moves all 4s on command SKIN: No jaundice noted. [id number] erythematous blanching, not purulent, no fluctuance or drainage. Central eschar. Medical Decision & Procedures Medications Administered Medications (Trade) Dose Ordered Sig/Yazan Route Start Time Stop Time Status Last Admin Dose Admin Diphenhydramine HCl (Benadryl Cap) 25 mg NOW ONCE PO 07/08/18 21:00 07/08/18 21:01 DC 07/08/18 21:01 25 MG Famotidine (Pepcid Tab) 20 mg NOW ONCE PO 07/08/18 21:00 07/08/18 21:01 DC 07/08/18 21:02 20 MG Prednisone (PredniSONE TAB) 20 mg NOW STAT PO 07/08/18 20:55 07/08/18 20:56 DC 07/08/18 21:01 20 MG ED Course 2046: The patient was evaluated in room C02B. A complete history and physical exam was performed. 2141: I reevaluated the patient. Discussed results and discharge instructions: she verbalized understanding and agreement. The patient is ready for discharge. Medical Decision The patient is a 73 year old white female with a past medical history of GERD, hypothyroidism, CHF who presents to the ED with a cc of worsening bite to the left lower back beginning two nights ago. Nursing notes reviewed. Ancillary studies and prior records reviewed. Differential diagnosis: Etiologies such as allergic reaction, anaphylaxis, urticaria, Chahal-Elver syndrome, toxic epidermal necrolysis, erythema multiforme, cellulitis, as well as others were entertained. Patient was seen and evaluated the bedside. The patient reports that she felt some sort of sting or bite 2 days ago. The patient did have some pictures to show that she has had some expanding redness. The patient does not complain of some much pain but has noticed some itchiness. Unsure as to what this may have been. There is no evidence of any target lesion. Less likely Lyme disease or tick bite. Patient did receive some medications and upon reassessment the patient was feeling well. Given the patient's cardiac history and CHF patient was given low -dose steroids 20 mg just for 3 days. Patient received her first dose now. Patient was told to continue the prednisone and Benadryl and to continue topicals. If she does not have resolution or improvement of her symptoms the next 24-48 hours she should be started on antibiotic for possible cellulitic infection. Patient was given strict follow-up, discharge, and return precautions. All questions were answered. Patient was deemed suitable for outpatient follow-up at this time. Patient agreed with the plan of care and was safely discharged home. Medication Reconcilliation Current Medication List: was personally reviewed by me Blood Pressure Screening Patient's blood pressure: Elevated blood pressure Blood pressure disposition: Referred to PCP Impression Primary Impression: Insect bite Additional Impression: Allergic reaction Scribe Attestation The scribe's documentation has been prepared under my direction and personally reviewed by me in its entirety. I confirm that the note above accurately reflects all work, treatment, procedures, and medical decision making performed by me. Departure Information Dispostion Home / Self-Care Prescriptions Prednisone (Prednisone) 20 Mg Tab 20 MG PO DAILY for 2 Days, #2 TAB Prov: Dewey Gee M.D. 07/08/18 Cephalexin Monohydrate (Keflex) 500 Mg Cap 500 MG PO QID for 7 Days, #28 CAP Prov: Dewey Gee M.D. 07/08/18 Referrals Minda Soares DO (PCP) Forms HOME CARE DOCUMENTATION FORM, IMPORTANT VISIT INFORMATION, WORK / SCHOOL INSTRUCTIONS Patient Instructions ED Bite Sting Insect Local Allergic React, My [facility] Additional Instructions Please return to the emergency department if you have worsening or recurrent symptoms not amenable to at-home treatment. Please call for a follow-up appointment with her primary care physician. Please take your medications as prescribed. If you have other concerns and/or complaints please feel free to also call your primary care physician's office or return the ED for further evaluation, management, and treatment. You may take tylenol 650 mg every 6 hours as needed for pain/fever unless told by your physician to not take it or have liver problems. You may consider Benadryl or Cortaid cream. Please do not use the cortisone based cream for more than 2 days at a time as this may cause some skin thinning. You may also consider calamine lotion. You may consider Benadryl. You may also consider oatmeal baths. Please also consider only bathing once daily and making sure that your water is not very hot as washing too frequently and/or using very hot water may also cause some skin dryness and worsening itchiness. Please consider using creams as opposed to lotions as the lotions typically have alcohols which may also further worsen skin dryness and itchiness. Take your medications as prescribed. If taking an antibiotic consider taking a probiotic and/or eating yogurt, but at the least, please take with food as it can cause upset stomach. If your skin changes do not get better within the next 24-48 hours may start using the antibiotic. You have been examined and treated today on an emergency basis only. This is not a substitute for, or an effort to provide, complete comprehensive medical care. It is impossible to recognize and treat all injuries or illnesses in a single emergency department visit. It is therefore important that you follow up closely with [facility], your PCP, and/or your specialist(s). Call as soon as possible for an appointment. Thank you for your time and consideration. I look forward to speaking with you again soon. Please don't hesitate to call us if you have any questions. Problem Qualifiers Primary Impression: Insect bite Encounter type: initial encounter Qualified Codes: W57.XXXA - Bitten or stung by nonvenomous insect and other nonvenomous arthropods, initial encounter Additional Impression: Allergic reaction Encounter type: initial encounter Qualified Codes: T78.40XA - Allergy, unspecified, initial encounter
[2018-07-08] MEDS ORDERED: FAMOTIDINE 20 MG TAB PO ONE (21:00)
[2018-07-08] MEDS ORDERED: PRED20TA PO (21:45)
[2018-07-08] MEDS ORDERED: CEPH500C PO (21:45)
[2018-07-08 22:00] VITALS: BP 153/90; PULSE 95; O2SAT 96
== END 2018-07-08 22:00 | disposition home or self-care (01) ==
LOC: C.EDB 19:55 → C.EDC 22:00
DX: S30.860A Insect bite (nonvenomous) of lower back and pelvis, initial encounter (principal); W57.XXXA Bitten or stung by nonvenomous insect and other nonvenomous arthropods, initial encounter; T78.40XA Allergy, unspecified, initial encounter; X58.XXXA Exposure to other specified factors, initial encounter; K21.9 Gastro-esophageal reflux disease without esophagitis; E03.9 Hypothyroidism, unspecified; I50.9 Heart failure, unspecified; Z87.891 Personal history of nicotine dependence; Z83.3 Family history of diabetes mellitus; Z82.49 Family history of ischemic heart disease and other diseases of the circulatory system; Z79.82 Long term (current) use of aspirin; Z79.01 Long term (current) use of anticoagulants; Z79.899 Other long term (current) drug therapy

== ENCOUNTER 2025-10-13 23:01 | Inpatient (IN) ==
[2025-10-13] MEDS ORDERED: POLYETHYLENE (MIRALAX) 17 GM PACK PO PRN (23:24)
[2025-10-13] MEDS ORDERED: ONDANSETRON INJ 2 MG/ML 2 ML VIAL IV PRN (23:24)
[2025-10-13] MEDS ORDERED: ACETAMINOPHEN 325 MG TAB PO PRN (23:24)
[2025-10-13] MEDS ORDERED: MELATONIN 3 MG TAB PO PRN (23:25)
--- NOTE | 2025-10-13 23:50 | History & Physical Report ---
Date of Service October 13, 2025 Assessment & Plan (1) Bacteremia: (2) Cellulitis of left leg: Plan 80-year-old female PMHx lumbar radiculopathy, arthritis, HTN, A-fib on Xarelto, CHF, cardiomyopathy (Monoallelic mutation TTN gene), depression, hypothyroidism, hypercholesterolemia, prediabetes, vitamin D deficiency, chronic mastoiditis of the right side, and HTN with most recent hospital admission 10/10/2025 until 10/12/2025 for left leg cellulitis and sepsis requiring IV antibiotics presenting today for pending positive blood culture result. Pt is a direct admit, pending her labs at time of admission, #Bacteremia/L leg cellulitis Recent hospital admission 10/10/2025 until 10/12/2025 for left leg cellulitis with sepsis, was placed on ceftriaxone and then discharged home on cephalexin. Her Doppler at last admission were negative for DVT. 10/13/2025, preliminary blood cultures positive for gram negative bacilli. Patient was called ~ 2130 with information, and recommended to come to hospital for further IV antibiotics. - CBC without leukocytosis, stable H/H; PT/INR 16.9/1.6; CMP BUN 25, glucose 115; lactate 1.4; procal pending - CBC am - Blood cultures pending - Wound care - Acetaminophen prn fever/pain - Zofran prn N/V - Zosyn IV - adjust pending cultures #A-fib- EKG Afib, low QRS @ 88 bpm; PT elevated 16.9, ? related to when pt took medication; Metoprolol, Xarelto - continue, monitor PT #CHF- CXR stable; Furosemide, empagliflozin, Entresto - continue #Hypothyroidism- Levothyroxine - continue #Psych- Sertraline - continue Dispo: Admit, PCU VTE Prophylaxis: On Xarelto - continue This document was dictated utilizing ClickShift. Please excuse any grammatical errors that may be secondary to use of this software. Admission and Anticipated Discharge Date Admission Date: 10/13/2025 History of Present Illness Chief Complaint: (+) blood cultures Primary Care Provider: Minda Soares DO 80-year-old female PMHx lumbar radiculopathy, arthritis, HTN, A-fib on Xarelto, CHF, cardiomyopathy (Monoallelic mutation TTN gene), depression, hypothyroidism, hypercholesterolemia, prediabetes, vitamin D deficiency, chronic mastoiditis of the right side, and HTN with most recent hospital admission 10/10/2025 until 10/12/2025 for left leg cellulitis and sepsis requiring IV antibiotics presenting today for positive blood culture result. Pt reports that she is feeling better than she did when she was d/c from the hospital the day [employer]. She is still having some fatigue at present, and her LLE is still edematous and draining. She has not had fevers or chills in the subsequent hours following her most recent d/c. She is without CP, SOB, palpitations, abdominal pain, N/V/D/C, numbness/tingling, syncope, or falls. Pt is a direct admit. Her evaluation is unremarkable for leukocytosis or leukopenia, she is with stable H&H and platelets; PT/INR slightly elevated at 16.9/1.6 respectively; CMP BUN 25, ratio 22.9, glucose 115; lactate 1.4, pending procalcitonin; CXR stable cardiomegaly, previously congested changes are reduced, no other abnormalities; EKG A-fib with low voltage QRS at [address] Linares attestation for adjustments/additions to treatment plan. Allergies Allergy/AdvReac Type Severity Reaction Status Date / Time No Known Allergies Allergy Verified 10/10/25 15:39 Home Medications Medication Instructions Recorded Confirmed Type multivitamin 1 tab PO QAM #30 tabs 07/13/19 10/14/25 Rx furosemide 40 mg tablet 40 mg PO DAILY #90 tabs 05/06/23 10/14/25 Rx sacubitril 97 mg-valsartan 103 mg 1 tab PO BID #180 tabs 09/04/24 10/14/25 Rx tablet (Entresto) fluticasone propionate 50 2 spray intranasal DAILY PRN Nasal 11/30/24 10/14/25 History mcg/actuation nasal Congestion spray,suspension sertraline 50 mg tablet 50 mg PO PM #90 tabs 01/23/25 10/14/25 Rx fluocinolone acetonide oil 0.01 % 4 drp otic (ear) DAILY PRN ear 04/25/25 10/14/25 Rx ear drops itching #20 mL empagliflozin 10 mg tablet 10 mg PO DAILY 05/21/25 10/14/25 History levothyroxine 200 mcg capsule 200 mcg PO DAILY #30 caps 05/22/25 10/14/25 Rx rivaroxaban 20 mg tablet 20 mg PO QAM #90 tabs 05/22/25 10/14/25 Rx nystatin 100,000 unit/gram topical 1 applic topical BID #30 grams 07/13/25 10/14/25 Rx cream albuterol sulfate 90 mcg/actuation 2 puff inhalation Q6H PRN 08/10/25 10/14/25 Rx aerosol inhaler shortness of breath or wheezing #8.5 grams metoprolol succinate 100 mg 100 mg PO QPM 10/10/25 10/14/25 History tablet,extended release 24 hr metoprolol succinate 100 mg 200 mg PO QAM 10/10/25 10/14/25 History tablet,extended release 24 hr cephalexin 500 mg tablet 500 mg PO BID 7 days #14 tabs 10/12/25 10/14/25 Rx Past Med/Surg History Problem List Bacteremia Cellulitis of left leg (Acute) History of cholesteatoma Mixed hearing loss, bilateral Cardiomyopathy 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 CHF (congestive heart failure) Mixed conductive and sensorineural hearing loss of right ear with restricted hearing of left ear Vitamin D deficiency Seasonal allergies Chronic mastoiditis of right side Prediabetes Hypercholesterolemia GERD (gastroesophageal reflux disease) Osteoarthritis Atrial fibrillation (~12/2017) Follows with [facility] Depression Hypothyroidism Obstructive sleep apnea Hypertension Medical History Flank pain Eustachian tube dysfunction Bilateral cataracts Chronic diastolic congestive heart failure Tear of medial meniscus of left knee DJD (degenerative joint disease) of knee Premature ventricular contractions Periodic limb movement disorder Lichen sclerosus Diverticulosis IBS (irritable bowel syndrome) Surgical History Hx of cataract extraction (02/2023) b/l eyes Status post left hemicolectomy (01/2022) S/P myringotomy with insertion of tube (11/2018) R ear History of tympanomastoidectomy (02/19/17) Right Ear secondary to cholesteatoma History of colonoscopy History of total abdominal hysterectomy and bilateral salpingo-oophorectomy History of tonsillectomy Family History Sister Diabetes mellitus, type 2 Mother Diabetes mellitus, type 2 Son Cardiac pacemaker Other Hypertension No family history of adverse response to anesthesia No family history of bleeding disorder Denies family history of Ovarian cancer Prostate cancer Myocardial infarction Breast cancer Colorectal cancer Social History Smoking Status: Former smoker Tobacco Type: Cigarettes Age Started Using Tobacco: 16; Age Quit Using Tobacco: 74; packs per day: 1.5; Second Hand Exposure: No; Do You Dip or Chew Tobacco: No; Hx Alcohol Use: No Hx Substance Use: No Preferred Language: Libyan Communication Ability: Effective Visual Impairment: No Limitations Hearing Ability: Hard of Hearing Insurance Underwriter Sales Required: No Beliefs That Will Affect Care: None marital status: Current Living Situation: Family Current Living Situation Comment: with son current occupational status: retired How many Children do You have: 3 Feels Safe at Home: Yes Childhood Exposure to Second-Hand Smoke: No Diet: regular Diet Comment: regular caffeine: Yes (Coffee x 2 per day.) during the past year weight has: remained stable Dental Care, Regularly: No Physical Activity Frequency: 1-2 Times per Week Seatbelt Use: always Sunscreen Use: No Assistive Devices: Denture - Upper, Denture - Lower and Glasses Review of Systems Review of Systems: All systems reviewed & are unremarkable except as noted in Subjective Physical Exam Physical Exam: General: No acute distress Skin: Warm and dry Head: Normocephalic, atraumatic Eyes: PERRL, conjunctivae clear, sclera non-icteric ENT: External ear and ear canal without swelling; nose atraumatic; good dentition, tongue normal appearance, pharynx normal Neck: Supple, no LAD Cardio: RRR, no M/G/R, S1 and S2 normal Resp: No respiratory distress, Lungs CTA in all lobes bilaterally, no wheezes, rales, or rhonchi Abdomen: Soft, symmetric, nontender; No masses or hepatosplenomegaly; Bowel sounds normoactive MSK: No deformities; pulses palpable and equal; no edema. Neuro: Awake, alert; Sensation intact bilaterally; CN grossly intact Psych: Appropriate mood and affect; good judgement and insight. Son and PA student present in room at time of visit. Results & Data Results & Data Vital Signs (Past 12 Hours) Vital Signs Weight Blood Pressure Blood Pressure Position Temperature Temperature Source Respiratory Rate Pulse Oximetry 94.982 kg 148/88 H Sitting 36.8 C Oral 18 92 10/14/25 00:06 10/14/25 00:06 10/14/25 00:06 10/14/25 00:06 10/14/25 00:06 10/14/25 00:06 10/14/25 00:06 Laboratory Results 10/13/25 23:41 WBC 5.20 RBC 4.72 Hgb 14.8 Hct 43.9 MCV 93.0 MCH 31.4 MCHC 33.7 RDW Std Deviation 45.5 RDW Coeff of Miguel 13.3 Plt Count 207 MPV 10.9 Immature Gran % (Auto) 1.0 Neut % (Auto) 57.5 Lymph % (Auto) 26.0 Garrett % (Auto) 10.4 Eos % (Auto) 3.8 Baso % (Auto) 1.3 Neut # (Auto) 2.99 Lymph # (Auto) 1.35 Garrett # (Auto) 0.54 Eos # (Auto) 0.20 Baso # (Auto) 0.07 Immature Gran # (Auto) 0.05 Lactate 1.4 Diagnostic Findings Chest X-Ray 10/13/25 23:47 EXAM: XR chest 1V portable CLINICAL HISTORY: CHF TECHNIQUE: An X-ray image of the chest is obtained in AP projection. COMPARISON: 02/15/2018 06:26:23 LEVEL VIAL INSPECTOR FINDINGS: Pulmonary Parenchyma: Lungs are clear bilaterally. No evidence of consolidation, collapse, or focal opacities. No pulmonary nodules are identified. No evidence of pleural effusion or pleural thickening. Heart and Mediastinum: Cardiomegaly Bony Thorax: Bony thorax appears intact without fractures or deformities. Soft Tissues: Soft tissues overlying the chest wall are unremarkable. IMPRESSION: Cardiomegaly-stable. Previous congestive changes is reduced. No other abnormality seen. Electronically signed by Perez Guo 10-14-2025 01:12 AM ECG Additional Comments: Afib, low voltage QRS 88 bpm, QRS 94, QT/QTc 382/462, PRT */62/19 Code Status & VTE Plan Code Status Full VTE Prophylaxis Plan VTE Prophylaxis will be ordered: Yes Supervising Physician Co-Signing Physician Notes Attending addendum: I have physically seen this patient, have supervised the PHILIP's activities, and agree with the H&P unless as otherwise noted. Assessment and Plan: The patient is an 80-year-old female with past medical history including lumbar radiculopathy, arthritis, hypertension, atrial fibrillation on Xarelto, CHF, cardiomyopathy, depression, hypothyroidism, hypercholesterolemia, prediabetes, vitamin D deficiency, chronic right mastoiditis, and hypertension. Most recent hospitalization was from 10/10-10/12/2025 for left lower extremity cellulitis treated with IV ceftriaxone and discharged on Keflex. Microbiology lab called while on-call, and reported patient positive blood cultures for gram-negative bacilli. She was called back into the hospital to be seen in the ED for direct admission for further IV antibiotics. Assessment and plan- Gram-negative bacteremia/left lower extremity cellulitis- Labs stable as noted Consult wound care Zosyn 4.5 g IV every 8 hours Zofran 4 mg IV every 6 hours as needed Acetaminophen 650 mg by mouth every 6 hours as needed for mild pain or fever Atrial fibrillation/CHF- Continue metoprolol, Xarelto, furosemide, empagliflozin and Entresto Remaining orders and notations as noted PG Care Time/CCT Total # of Minutes Spent Total Time Spent with Patient: Total time spent is greater than 50% in coordination of care (as documented) at patient's floor/unit and/or counseling patient: Coding Level of Care Code 88612 INT INP/OBS CARE 75MIN Diagnoses Bacteremia R78.81 Cellulitis of left leg L03.116
[2025-10-14] MEDS: Patient's HEIGHT &/or WEIGHT Needed STA (00:07)
[2025-10-14 00:15] LABS: Hematocrit (blood only) 43.9 % (37.0-47.0); Hemoglobin 14.8 g/dL (12.0-16.0); Immature Granulocytes # (auto) 0.05 K/uL (0.01-0.20); Immature Granulocytes % (auto) 1.0 %; Mean Corpuscular Hemoglobin 31.4 pg (25.0-34.0); Mean Corpuscular Volume 93.0 fL (80.0-100.0); Platelet Count 207 K/uL (130-400); RDW Standard Deviation 45.5 fL (36.4-46.3); Red Blood Count 4.72 M/uL (4.20-5.40); White Blood Count 5.20 K/ul (4.8-10.8)
[2025-10-14] MEDS ORDERED: ALBUTEROL HFA 8 GM INHALER INH PRN (00:28)
[2025-10-14 00:32] LABS: Alanine Aminotransferase 12 U/L (7-52); Albumin Globulin Ratio 1.0 (0.9-2); Albumin Level 3.5 gm/dl (3.4-5.0); Alkaline Phosphatase 55 U/L (34-104); Anion Gap 7 (3-11); Bilirubin,Total 0.5 mg/dl (0.2-1.0); Blood Urea Nitrogen 25 mg/dl (6-23); Calcium 9.0 mg/dl (8.6-10.3); Carbon Dioxide 31 mmol/L (21-32); Chloride 101 mmol/L (98-107); Globulin 3.6 gm/dl (2.5-4.0); Glucose 115 mg/dl (70-99(Fasting)); Potassium 3.6 mmol/L (3.5-5.1); Sodium 139 mmol/L (136-145); Total Protein 7.1 gm/dl (6.0-8.3)
[2025-10-14] MEDS: PIPERACILLIN/TAZOBACTAM 4.5 GM/100 ML BAG IV STA (00:38)
[2025-10-14 00:47] LABS: INR 1.6 (0.9-1.1); Prothrombin Time 16.9 Seconds (9.0-12.0)
--- NOTE | 2025-10-14 01:13 | XRay Report ---
EXAM: XR chest 1V portable CLINICAL HISTORY: CHF TECHNIQUE: An X-ray image of the chest is obtained in AP projection. COMPARISON: 02/15/2018 06:26:23 FINANCIAL SALES CONSULTANT FINDINGS: Pulmonary Parenchyma: Lungs are clear bilaterally. No evidence of consolidation, collapse, or focal opacities. No pulmonary nodules are identified. No evidence of pleural effusion or pleural thickening. Heart and Mediastinum: Cardiomegaly Bony Thorax: Bony thorax appears intact without fractures or deformities. Soft Tissues: Soft tissues overlying the chest wall are unremarkable. IMPRESSION: Cardiomegaly-stable. Previous congestive changes is reduced. No other abnormality seen. Electronically signed by Perez Guo 10-14-2025 01:12 AM
[2025-10-14 03:23] VITALS: RESP 16
[2025-10-14] MEDS: LEVOTHYROXINE SODIUM 200 MCG TABLET PO SCH (05:18)
[2025-10-14] MEDS: PIPERACILLIN/TAZOBACTAM 4.5 GM/100 ML BAG IV SCH (05:19)
[2025-10-14 06:41] LABS: Hematocrit (blood only) 38.4 % (37.0-47.0); Hemoglobin 13.0 g/dL (12.0-16.0); Mean Corpuscular Hemoglobin 31.0 pg (25.0-34.0); Mean Corpuscular Volume 91.4 fL (80.0-100.0); Platelet Count 167 K/uL (130-400); RDW Standard Deviation 44.9 fL (36.4-46.3); Red Blood Count 4.20 M/uL (4.20-5.40); White Blood Count 4.99 K/ul (4.8-10.8)
[2025-10-14 07:08] VITALS: BP 131/77; TEMP 97.7; O2SAT 94
[2025-10-14] MEDS: VALSARTAN/SACUBITRIL 103/97MG TAB PO SCH (08:23)
[2025-10-14] MEDS: FUROSEMIDE 40 MG TAB PO SCH (08:24)
[2025-10-14] MEDS: NYSTATIN CR 15 GM TUBE EXT SCH (08:24)
[2025-10-14] MEDS: METOPROLOL SUCC 50MG EXT REL TAB PO SCH (08:24)
[2025-10-14] MEDS: EMPAGLIFLOZIN 10 MG TAB PO SCH (08:24)
--- NOTE | 2025-10-14 08:42 | Discharge Summary ---
Discharge Summary Date of Service October 14, 2025 Principal Dx & Hospital Course #1 = Principal Diagnosis (1) Bacteremia: (2) Cellulitis of left leg: Plan 80-year-old female PMHx lumbar radiculopathy, arthritis, HTN, A-fib on Xarelto, CHF, cardiomyopathy (Monoallelic mutation TTN gene), depression, hypothyroidism, hypercholesterolemia, prediabetes, vitamin D deficiency, chronic mastoiditis of the right side, and HTN with most recent hospital admission 10/10/2025 until 10/12/2025 for left leg cellulitis and sepsis requiring IV antibiotics presenting today for pending positive blood culture result. Pt is a direct admit, pending her labs at time of admission, #Bacteremia/L leg cellulitis Recent hospital admission 10/10/2025 until 10/12/2025 for left leg cellulitis with sepsis, was placed on ceftriaxone and then discharged home on cephalexin. Her Doppler at last admission were negative for DVT. 10/13/2025, preliminary blood cultures positive for gram negative bacilli. Patient was called ~ 2130 with information, and recommended to come to hospital for further IV antibiotics. - CBC without leukocytosis, stable H/H; PT/INR 16.9/1.6; CMP BUN 25, glucose 115; lactate 1.4; procal pending - CBC am - Blood cultures pending - Wound care - Acetaminophen prn fever/pain - Zofran prn N/V - Zosyn IV - adjust pending cultures #A-fib- EKG Afib, low QRS @ 88 bpm; PT elevated 16.9, ? related to when pt took medication; Metoprolol, Xarelto - continue, monitor PT #CHF- CXR stable; Furosemide, empagliflozin, Entresto - continue #Hypothyroidism- Levothyroxine - continue #Psych- Sertraline - continue Dispo: Admit, PCU VTE Prophylaxis: On Xarelto - continue This document was dictated utilizing [employer]. Please excuse any grammatical errors that may be secondary to use of this software. Admission HPI Per Admitting Provider 80-year-old female PMHx lumbar radiculopathy, arthritis, HTN, A-fib on Xarelto, CHF, cardiomyopathy (Monoallelic mutation TTN gene), depression, hypothyroidism, hypercholesterolemia, prediabetes, vitamin D deficiency, chronic mastoiditis of the right side, and HTN with most recent hospital admission 10/10/2025 until 10/12/2025 for left leg cellulitis and sepsis requiring IV antibiotics presenting today for positive blood culture result. Pt reports that she is feeling better than she did when she was d/c from the hospital the day [employer]. She is still having some fatigue at present, and her LLE is still edematous and draining. She has not had fevers or chills in the subsequent hours following her most recent d/c. She is without CP, SOB, palpitations, abdominal pain, N/V/D/C, numbness/tingling, syncope, or falls. Pt is a direct admit. Her evaluation is unremarkable for leukocytosis or leukopenia, she is with stable H&H and platelets; PT/INR slightly elevated at 16.9/1.6 respectively; CMP BUN 25, ratio 22.9, glucose 115; lactate 1.4, pending procalcitonin; CXR stable cardiomegaly, previously congested changes are reduced, no other abnormalities; EKG A-fib with low voltage QRS at [address] Linares attestation for adjustments/additions to treatment plan. Discharge Plan Discharge Items Reason For Visit: GRAM NEGATIVE BACTEREMIA Discharge Diagnosis: Contaminant Blood culture Activity: Resume your previous activity Non-emergency contact: Primary Care Provider Call non-emergency contact if: you have any medication questions Follow-up/Referrals: Minda Soares DO [Primary Care Provider] - Diet: Heart Healthy Addtl Attending Provider Instructions: I am glad that you are feeling better. We will keep the same plan as before. Pending Studies at Discharge: No Stand-Alone Forms: My [facility] [employer], Smoking Cessation Medications and DC Order Prescriptions: Continued furosemide 40 mg tablet 40 mg PO DAILY Qty: 90 3RF Entresto 97-103 mg tablet 1 tab PO BID Qty: 180 3RF sertraline 50 mg tablet 50 mg PO PM Qty: 90 1RF levothyroxine 200 mcg capsule 200 mcg PO DAILY Qty: 30 1RF rivaroxaban 20 mg tablet 20 mg PO QAM Qty: 90 1RF nystatin 100,000 unit/gram cream 1 applic topical BID Qty: 30 1RF Rx Instructions: USES PRN albuterol sulfate 90 mcg/actuation HFA aerosol inhaler 2 puff inhalation Q6H PRN (Reason: shortness of breath or wheezing) Qty: 8.5 5RF multivitamin tablet 1 tab PO QAM Qty: 30 0RF empagliflozin 10 mg tablet 10 mg PO DAILY fluticasone propionate 50 mcg/actuation spray,suspension 2 spray intranasal DAILY PRN (Reason: Nasal Congestion) Rx Instructions: administer into each nostril fluocinolone acetonide oil 0.01 % drops 4 drp otic (ear) DAILY PRN (Reason: ear itching) Qty: 20 0RF Rx Instructions: Apply to affected ear BID 2-3 days/week PRN itchy ear metoprolol succinate 100 mg tablet extended release 24 hr 200 mg PO QAM metoprolol succinate 100 mg tablet extended release 24 hr 100 mg PO QPM cephalexin 500 mg tablet 500 mg PO BID 7 Days Qty: 14 0RF Admission Data Admit Date/Time: 10/13/25 23:24 Attending Provider: Zach Archer Admit Provider: Wilton Linares Primary Care Provider: Minda Soares Hospital Stay Data Pending Results Patient Have Any Pending Studies at Discharge: No Discharge Instructions Given to Patient (Per Discharging Provider) I am glad that you are feeling better. We will keep the same plan as before. Coding Diagnoses Bacteremia R78.81 Cellulitis of left leg L03.116
[2025-10-14 10:26] VITALS: PULSE 64
--- NOTE | 2025-10-14 12:12 | Electrocardiogram Report ---
Test Reason : Blood Pressure : */* mmHG Vent. Rate : 88 BPM Atrial Rate : * BPM P-R Int : * ms QRS Dur : 94 ms QT Int : 382 ms P-R-T Axes : * 62 19 degrees QTcB Int : 462 ms Atrial fibrillation Low voltage QRS Abnormal ECG When compared with ECG of 10-Oct-2025 14:05, Vent. rate has decreased by 44 bpm Confirmed by Maurice Marroquin ([id number]) on 10/14/2025 12:12:21 PM Referred By: REFERRED SELF Confirmed By: Maurice Marroquin
[2025-10-14] MEDS ORDERED: RIVAROXABAN 20 MG TAB PO SCH (16:30)
[2025-10-14] MEDS ORDERED: SERTRALINE HCL 50 MG TABLET PO SCH (21:00)
[2025-10-14] MEDS ORDERED: METOPROLOL SUCC 50MG EXT REL TAB PO SCH (21:00)
== END 2025-10-14 10:15 | disposition home or self-care (01) | DRG 872 ==
LOC: ED 23:01 → SUATTDRO 23:24 → 2S 23:24 → UNDODISIN 10-14 10:15 → EDSTATUS 10-16 15:19